=== PATIENT | male | born 1955 | race Caucasian/White ===

== ENCOUNTER 2016-05-02 23:12 | Emergency (ER) | payer OTHER ==
[2016-05-03 00:19] VITALS: TEMP 98
--- NOTE | 2016-05-03 00:55 | ED.PDOC ---
History of Present Illness - General Chief Complaint: GI Problem Stated Complaint: constipated and bugs all over Time Seen by Provider: 05/02/16 23:37 Source: patient, RN notes reviewed, Vital Signs reviewed Exam Limitations: no limitations - History of Present Illness Initial Comments: Stated constipated for 5 days and bugs all over me tonight Timing/Duration: 24 hours Severity: moderate Improving Factors: nothing Worsening Factors: nothing Associated Symptoms: denies symptoms Allergies/Adverse Reactions: Allergies NO KNOWN ALLERGY Allergy (Verified 10/05/15 19:40) Home Medications: Ambulatory Orders Insulin Aspart [Novolog] 10 unit SC TID 01/20/16 Insulin Glargine [Lantus Solostar] 25 unit SC BEDTIME 01/20/16 Docusate Sodium 100 mg PO BID 01/31/16 Hydrocodone-Acetaminophen [Lorcet Plus 7.5-325 mg] 1 each PO Q6HR PRN 01/31/16 Nystatin (Topical) [Nyamyc] 1 a TOP DAILY 01/31/16 Sulfamethoxazole-Trimethoprim [Bactrim Ds 800-160 mg] 1 tab PO BID 01/31/16 Magnesium Hydroxide [Milk of Magnesia] 30 ml PO BEDTIME PRN #30 oil 02/01/16 Polyethylene Glycol 3350 [Miralax] 17 gm PO QD #30 pckt 02/01/16 Sodium Phos/Biphos Enema Adult [Fleet Enema (Adult)] 1 ea GA DAILY PRN #7 bttl 02/01/16 Bisacodyl [Dulcolax Tab] 10 mg PO QPM PRN #30 tab 05/03/16 Insulin Aspart [Novolog] 10 unit SC TID #1 inj 05/03/16 Insulin Glargine [Lantus Solostar] 25 unit SC PCHS #1 bottle 05/03/16 Polyethylene Glycol 3350 [Miralax] 17 gm PO QDAC #30 pckt 05/03/16 Review of Systems - Review of Systems Constitutional: States: no symptoms reported EENTM: States: no symptoms reported Respiratory: States: no symptoms reported Cardiology: States: no symptoms reported Gastrointestinal/Abdominal: States: constipation Genitourinary: States: no symptoms reported Musculoskeletal: States: no symptoms reported Skin: States: dryness Endocrine: States: other - non compliance with diabetic medications Past Medical History (General) - Patient Medical History Hx Seizures: No Hx Stroke: No Hx Asthma: No Hx of COPD: No Hx Cardiac Disorders: No Hx Congestive Heart Failure: No Hx Pacemaker: No Hx Hypertension: No Hx Diabetes: Yes Hx Gastroesophageal Reflux: No Hx Renal Disease: No Hx Cancer: No Surgical History: appendectomy - Vaccination History Hx Tetanus, Diphtheria Vaccination: Yes Hx Influenza Vaccination: Yes Hx Pneumococcal Vaccination: Yes - Social History Hx Tobacco Use: Yes Hx Chewing Tobacco Use: No Hx Alcohol Use: No Hx Substance Use: No Hx Substance Use Treatment: No Hx Depression: No Hx Physical Abuse: No Hx Emotional Abuse: No Hx Suspected Abuse: No Family Medical History - Family History Mother Family History: Unknown Hx Family Diabetes: Yes - mother Hx Family;Other: patient uncoperative Physical Exam - Physical Exam General Appearance: Anxious, No apparent distress Ears, Nose, Throat: hearing grossly normal, normal ENT inspection, normal pharynx Neck: non-tender, full range of motion, normal inspection Respiratory: lungs clear, no respiratory distress Cardiovascular/Chest: normal peripheral pulses, regular rate, rhythm, no gallop , no murmur Peripheral Pulses: radial,right: 2+, radial,left: 2+ Gastrointestinal/Abdominal: normal bowel sounds, non tender, soft, no organomegaly, no pulsatile mass Rectal Exam: normal rectal tone, other - empty rectal vault no stool Back Exam: normal inspection, no CVA tenderness Extremity: non-tender, normal inspection, no pedal edema Progress - Progress Progress: 05/03/16 01:57 corrected sodium-138 mg/dl - Results/Orders Results/Orders: 05/03/16 01:05 COMPLETE METABOLIC PROFILE Stat THYROID STIMULATING HORMONE Stat 05/03/16 01:18 URINALYSIS Stat 05/03/16 01:35 Sodium Chloride 0.9% 1000ML [Ns 1000 ml] 1,000 ml IVS ONCE Laboratory Results WBC 7.4 K/mm3 (4.8-10.8) 05/03/16 01:05 RBC 4.92 M/mm3 (4.70-6.10) 05/03/16 01:05 Hgb 13.5 gm/dL (14.0-18.0) L 05/03/16 01:05 Hct 41.7 % (42.0-52.0) L 05/03/16 01:05 MCV 84.8 fl (80.0-94.0) 05/03/16 01:05 MCH 27.4 pg (27.0-31.0) 05/03/16 01:05 MCHC 32.3 g/dL (33.0-37.0) L 05/03/16 01:05 RDW 13.5 % (11.5-14.5) 05/03/16 01:05 Plt Count 352 K/mm3 (130-400) 05/03/16 01:05 MPV 8.2 fl (7.40-10.4) 05/03/16 01:05 Absolute Neuts (auto) 5.70 K/uL (1.8-6.8) 05/03/16 01:05 Absolute Lymphs (auto) 1.20 K/uL (1.0-3.4) 05/03/16 01:05 Absolute Monos (auto) 0.40 K/uL (0.2-0.8) 05/03/16 01:05 Absolute Eos (auto) 0.00 K/uL (0.0-0.4) 05/03/16 01:05 Absolute Basos (auto) 0.00 K/uL (0.0-0.1) 05/03/16 01:05 Neutrophils % 77.6 % (42.0-78.0) 05/03/16 01:05 Lymphocytes % 16.0 % (20.0-50.0) L 05/03/16 01:05 Monocytes % 5.3 % (2.0-9.0) 05/03/16 01:05 Eosinophils % 0.5 % (1.0-5.0) L 05/03/16 01:05 Basophils % 0.6 % (0.0-2.0) 05/03/16 01:05 Sodium 128 mmol/L (135-145) L 05/03/16 01:05 Potassium 4.5 mmol/L (3.6-5.0) 05/03/16 01:05 Chloride 97 mmol/L (101-111) L 05/03/16 01:05 Carbon Dioxide 27 mmol/L (21-31) 05/03/16 01:05 Anion Gap 8.5 (12-18) L 05/03/16 01:05 BUN 36 mg/dL (7-18) H 05/03/16 01:05 Creatinine 1.21 mg/dL (0.6-1.3) 05/03/16 01:05 BUN/Creatinine Ratio 29.8 (10-20) H 05/03/16 01:05 Random Glucose 702 mg/dL (70-105) H* 05/03/16 01:05 Serum Osmolality 298.9 mOsm/L (275-295) H 05/03/16 01:05 Calcium 8.9 mg/dL (8.4-10.2) 05/03/16 01:05 Total Bilirubin 0.6 mg/dL (0.2-1.0) 05/03/16 01:05 AST 14 IU/L (10-42) 05/03/16 01:05 ALT 14 IU/L (10-60) 05/03/16 01:05 Alkaline Phosphatase 67 IU/L (42-121) 05/03/16 01:05 Serum Total Protein 6.4 gm/dL (6.4-8.2) 05/03/16 01:05 Albumin 3.6 g/dl (3.2-5.5) 05/03/16 01:05 Globulin 2.8 gm/dL (2.3-3.5) 05/03/16 01:05 Albumin/Globulin Ratio 1.3 (1.1-1.9) 05/03/16 01:05 Urine Opiates Screen Negative ng/mL (2000) 05/03/16 01:40 Urine Barbiturates Negative ng/mL (200) 05/03/16 01:40 Ur Phencyclidine Scrn Negative ng/mL (25) 05/03/16 01:40 U Amphetamin/Meth Scrn Negative ng/mL (1000) 05/03/16 01:40 U Benzodiazepines Scrn Negative ng/mL (200) 05/03/16 01:40 U Cocaine Metab Screen Negative ng/mL (300) 05/03/16 01:40 U Cannabinoids Screen Negative ng/mL (50) 05/03/16 01:40 FSBS-372 mg/dl - EKG/XRAY/CT XRAY: abdomen - moderate amount of stool colon Departure - Departure Clinical Impression: Diabetes mellitus type 2, uncontrolled, without complications, Non compliance w medication regimen Constipation Qualifiers: Constipation type: unspecified constipation type Qualifier Code: (K59.00) Constipation, unspecified Time of Disposition: 05:55 Disposition: Discharge to Home or Self Care Condition: Good Departure Forms: ED Discharge - Pt. Copy, Patient Portal Self Enrollment Instructions: DI for Constipation Referrals: Eloise Durand NP [Primary Care Provider] - 1-2 Weeks Prescriptions: Bisacodyl [Dulcolax Tab] 10 mg PO QPM PRN #30 tab PRN Reason: Constipation Insulin Glargine [Lantus Solostar] 25 unit SC PCHS #1 bottle Polyethylene Glycol 3350 [Miralax] 17 gm PO QDAC #30 pckt Insulin Aspart [Novolog] 10 unit SC TID #1 inj Home Medications: Ambulatory Orders Insulin Aspart [Novolog] 10 unit SC TID 01/20/16 Insulin Glargine [Lantus Solostar] 25 unit SC BEDTIME 01/20/16 Docusate Sodium 100 mg PO BID 01/31/16 Hydrocodone-Acetaminophen [Lorcet Plus 7.5-325 mg] 1 each PO Q6HR PRN 01/31/16 Nystatin (Topical) [Nyamyc] 1 a TOP DAILY 01/31/16 Sulfamethoxazole-Trimethoprim [Bactrim Ds 800-160 mg] 1 tab PO BID 01/31/16 Magnesium Hydroxide [Milk of Magnesia] 30 ml PO BEDTIME PRN #30 oil 02/01/16 Polyethylene Glycol 3350 [Miralax] 17 gm PO QD #30 pckt 02/01/16 Sodium Phos/Biphos Enema Adult [Fleet Enema (Adult)] 1 ea GA DAILY PRN #7 bttl 02/01/16 Bisacodyl [Dulcolax Tab] 10 mg PO QPM PRN #30 tab 05/03/16 Insulin Aspart [Novolog] 10 unit SC TID #1 inj 05/03/16 Insulin Glargine [Lantus Solostar] 25 unit SC PCHS #1 bottle 05/03/16 Polyethylene Glycol 3350 [Miralax] 17 gm PO QDAC #30 pckt 05/03/16
[2016-05-03] MEDS ORDERED: SODIUM CHLORIDE 0.9% 1000ML 1,000 ML IVS ONE (01:35)
--- NOTE | 2016-05-03 01:37 | RAD ---
EXAM DESCRIPTION: XR ABDOMEN 2 VIEWS SUPINE ERECT CLINICAL HISTORY: 60 y/o , M, constipation COMPARISON: Acute abdominal series January 31, 2016 TECHNIQUE: Acute abdominal series FINDINGS: The lungs are clear without focal consolidation or pleural effusion. The heart is normal in size. The mediastinal contours are normal. The bowel gas pattern is normal. There is a moderate amount of formed stool diffusely throughout the colon. There is no evidence of free air. There are no abnormal masses or calcifications. Limited evaluation of the liver, spleen, and kidneys demonstrate no gross abnormalities. The osseous structures are age appropriate. IMPRESSION: 1. No acute cardiopulmonary disease. 2. No acute intraabdominal process. 3. Moderate formed colonic stool. Electronically signed by: Genet Castro MD 05/03/2016 01:36
[2016-05-03] MEDS ORDERED: INSULIN, REG.(HUMAN) 100 U/ML VIAL IV ONE (01:48)
[2016-05-03] MEDS ORDERED: INSULIN DETEMIR 100 UNITS/ML PEN SUBCU ONE (04:00)
[2016-05-03 06:48] VITALS: BP 128/80; O2SAT 96
== END 2016-05-03 07:21 | disposition home or self-care (01) ==
LOC: ER 23:12
DX: K59.00 Constipation, unspecified (principal); E11.65 Type 2 diabetes mellitus with hyperglycemia; Z91.14 Patient's other noncompliance with medication regimen; Z79.4 Long term (current) use of insulin; Z79.899 Other long term (current) drug therapy
CPT/HCPCS: 36415; 74020; 80048; 80053; 81001; 82948; 84443; 85025; G0479; J1815; J7030

== ENCOUNTER 2016-05-17 15:30 | Observation (INO) | payer OTHER ==
[2016-05-17] MEDS ORDERED: SODIUM CHLORIDE 0.9% 1000ML 1,000 ML IVS ONE ×2 (16:11→18:24)
[2016-05-17] MEDS ORDERED: hydrOXYzine PAMOATE 25 MG CAP PO ONE ×3 (16:45→19:04)
--- NOTE | 2016-05-17 17:45 | ED.PDOC ---
History of Present Illness - General Chief Complaint: Bite: Animal/Insect/Human Stated Complaint: BUGS ALL OVER BODY Time Seen by Provider: 05/17/16 16:00 Source: patient Exam Limitations: no limitations Additional Information: C/O SENSATION OF BUG BITES ON HIS FACE AND BOTTOMS OF FEET. PRESENT FOR [address] NOT SEEN [address] ABOUT IT YET. HAS IDDM. DOES NOT HAVE A DR. I ASKED WHERE HE GOT HIS INSULIN AND HE SAID AT THE HOSPITAL. HE RAN OUT AND HAS NOT TAKEN FOR A LONG TIME. - History of Present Illness Severity: moderate Improving Factors: nothing Worsening Factors: nothing Allergies/Adverse Reactions: Allergies NO KNOWN ALLERGY Allergy (Verified 10/05/15 19:40) Home Medications: Ambulatory Orders Insulin Aspart [Novolog] 10 unit SC TID 01/20/16 Insulin Glargine [Lantus Solostar] 25 unit SC BEDTIME 01/20/16 Docusate Sodium 100 mg PO BID 01/31/16 Hydrocodone-Acetaminophen [Lorcet Plus 7.5-325 mg] 1 each PO Q6HR PRN 01/31/16 Nystatin (Topical) [Nyamyc] 1 a TOP DAILY 01/31/16 Sulfamethoxazole-Trimethoprim [Bactrim Ds 800-160 mg] 1 tab PO BID 01/31/16 Magnesium Hydroxide [Milk of Magnesia] 30 ml PO BEDTIME PRN #30 oil 02/01/16 Polyethylene Glycol 3350 [Miralax] 17 gm PO QD #30 pckt 02/01/16 Sodium Phos/Biphos Enema Adult [Fleet Enema (Adult)] 1 ea CO DAILY PRN #7 bttl 02/01/16 Bisacodyl [Dulcolax Tab] 10 mg PO QPM PRN #30 tab 05/03/16 Insulin Aspart [Novolog] 10 unit SC TID #1 inj 05/03/16 Insulin Glargine [Lantus Solostar] 25 unit SC PCHS #1 bottle 05/03/16 Polyethylene Glycol 3350 [Miralax] 17 gm PO QDAC #30 pckt 05/03/16 Review of Systems - Review of Systems Constitutional: Denies: chills, fever, malaise, weakness EENTM: States: no symptoms reported. Denies: eye pain Respiratory: States: no symptoms reported Cardiology: States: no symptoms reported Gastrointestinal/Abdominal: States: no symptoms reported Genitourinary: States: no symptoms reported Musculoskeletal: States: no symptoms reported Skin: States: other - PRURITIS. Neurological: States: no symptoms reported Endocrine: States: no symptoms reported Hematologic/Lymphatic: States: no symptoms reported All other Systems: Reviewed and Negative Past Medical History (General) - Patient Medical History Hx Seizures: No Hx Stroke: No Hx Asthma: No Hx of COPD: No Hx Cardiac Disorders: No Hx Congestive Heart Failure: No Hx Pacemaker: No Hx Hypertension: No Hx Diabetes: Yes Hx Gastroesophageal Reflux: No Hx Renal Disease: No Hx Cancer: No Surgical History: appendectomy - Vaccination History Hx Tetanus, Diphtheria Vaccination: Yes Hx Influenza Vaccination: Yes Hx Pneumococcal Vaccination: Yes - Social History Hx Tobacco Use: Yes Hx Chewing Tobacco Use: No Hx Alcohol Use: No Hx Substance Use: No Hx Substance Use Treatment: No Hx Depression: No Hx Physical Abuse: No Hx Emotional Abuse: No Hx Suspected Abuse: No Family Medical History - Family History Mother Family History: Unknown Hx Family Diabetes: Yes - mother Hx Family;Other: patient uncoperative Physical Exam - Physical Exam General Appearance: Anxious, Other - UNCOMFORTABLE Eye Exam: bilateral normal Ears, Nose, Throat: hearing grossly normal, normal ENT inspection, normal pharynx Neck: non-tender, full range of motion, supple Respiratory: chest non-tender, lungs clear, normal breath sounds Cardiovascular/Chest: normal peripheral pulses, regular rate, rhythm Peripheral Pulses: radial,right: 2+ Gastrointestinal/Abdominal: normal bowel sounds, non tender Back Exam: normal inspection, no CVA tenderness Extremity: normal range of motion, non-tender Neurologic: crystal lapper II-XII nml as tested, alert, oriented x 3 Skin Exam: warm/dry, other - EXCORIATIONS BUE AND NECK. NO BURROWS, BUG BITE TRACTS, OR RASH. Lymphatic: no adenopathy Progress - Results/Orders Results/Orders: DKA - GLUCOSE 765. URINE TRACE KETONES. ANION GAP NL AT 9. GAVE 1L NS BOLUS. REPEAT GLUCOSE 611. GAVE 10 UNITS INSULIN AND 2ND LITER IVF. POTASSIUM WAS 4.7. REPEAT BMP PENDING. ABG - ATTEMPTED BUT THEN PT REFUSED THUS NOT OBTAINED. NA 128, CORRECTED SODIUM 139. FOR URTICARIA, GAVE VISTARIL WHICH HELPED. 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 Departure - Departure Clinical Impression: Diabetic ketoacidosis Disposition: Admit Patient Departure Forms: ED Discharge - Pt. Copy, Patient Portal Self Enrollment Home Medications: Ambulatory Orders Insulin Aspart [Novolog] 10 unit SC TID 01/20/16 Insulin Glargine [Lantus Solostar] 25 unit SC BEDTIME 01/20/16 Docusate Sodium 100 mg PO BID 01/31/16 Hydrocodone-Acetaminophen [Lorcet Plus 7.5-325 mg] 1 each PO Q6HR PRN 01/31/16 Nystatin (Topical) [Nyamyc] 1 a TOP DAILY 01/31/16 Sulfamethoxazole-Trimethoprim [Bactrim Ds 800-160 mg] 1 tab PO BID 01/31/16 Magnesium Hydroxide [Milk of Magnesia] 30 ml PO BEDTIME PRN #30 oil 02/01/16 Polyethylene Glycol 3350 [Miralax] 17 gm PO QD #30 pckt 02/01/16 Sodium Phos/Biphos Enema Adult [Fleet Enema (Adult)] 1 ea CO DAILY PRN #7 bttl 02/01/16 Bisacodyl [Dulcolax Tab] 10 mg PO QPM PRN #30 tab 05/03/16 Insulin Aspart [Novolog] 10 unit SC TID #1 inj 05/03/16 Insulin Glargine [Lantus Solostar] 25 unit SC PCHS #1 bottle 05/03/16 Polyethylene Glycol 3350 [Miralax] 17 gm PO QDAC #30 pckt 05/03/16 Decision To Admit - Decistion To Admit Decision to Admit Reason: Admit from ER Decision to Admit Date: 05/17/16 Decision to Admit Time: 19:09
[2016-05-17] MEDS ORDERED: INSULIN, REG.(HUMAN) 100 U/ML VIAL IV ONE (18:21)
[2016-05-17] MEDS ORDERED: HYDROmorphone HCL INJ 2 MG/ML VIAL IV ONE (19:19)
--- NOTE | 2016-05-17 20:23 | HP ---
SUPERVISING PHYSICIAN: Isa Arriaza MD CHIEF COMPLAINT: Bugs all over body. HISTORY OF PRESENT ILLNESS: Mr. Marroquin is a 61-year-old, male patient who presented to the Emergency Department complaining of sensation of having bug bites on his face and his legs. He does admit to using methamphetamines on a daily basis and notes he has been feeling bugs on his skin now for 7 months. He also has a history of type 2 diabetes mellitus previously requiring insulin, however, he has failed to follow the medication regimen and has run out of insulin many months previous to this admission. Laboratory studies today showed glucose 765 on admission with a corrected sodium of 139 with potassium 4.7, serum osmolality greater than 300, serum ketones negative. ABG was attempted, however, the patient refused after several attempts. Anion gap was 13 initially. He was given 2 liters of normal saline and 10 units of regular insulin IV in the Emergency Department. Blood sugar corrected to 383 by the time he was requested to be admitted to the Medical/Surgical Floor. Given the patient's significant hyperglycemia/hyperosmolar state with the absence of ketones, the patient is going to be admitted for continuation of treatment and further evaluation. He was admitted in stable condition. PAST MEDICAL HISTORY: 1. Type 2 diabetes mellitus, previously requiring insulin with the patient being noncompliant with medication regimen. 2. Psoriasis. PAST SURGICAL HISTORY: 1. Appendectomy. 2. Left knee surgery. 3. Hernia repair. PREVIOUS MEDICATIONS: 1. NovoLog 10 units subcutaneously 3 times a day. 2. Lantus 25 units with at bedtime. ALLERGIES: NO KNOWN DRUG ALLERGIES. FAMILY HISTORY: Unremarkable. SOCIAL HISTORY: The patient is disabled. He lives in [place]. He previously lived at [facility], but currently lives with a girlfriend. He denies any alcohol usage, but does note that he smokes methamphetamine on a daily basis with the last being 2 days previous to this admission. He does not smoke tobacco, but he does use smokeless tobacco. REVIEW OF SYSTEMS: CONSTITUTIONAL: Denies any fevers, chills, or unintentional weight loss or weight gain. HEENT: Denies sinus symptoms, nasal drainage, sore throat, or ear pain. CARDIOVASCULAR: Denies chest pain, tachycardia. or palpitations. RESPIRATORY: Denies cough, wheezing, or well-mobilized. GASTROINTESTINAL: He has chronic constipation with the last bowel movement 2 weeks previous, but denies nausea or vomiting. GENITOURINARY: Denies dysuria, increased frequency or other urinary symptoms. INTEGUMENTARY: He notes that he has bugs crawling on him, mainly on his face, legs and arms. He denies any rashes. NEUROLOGIC: Denies, headaches, dizziness, or seizures. PSYCHIATRIC: Tactile hallucinations secondary to amphetamine abuse. Denies any suicidal or homicidal ideations. Thought process is adequate. Affect is hyperactive, but not agitated. PHYSICAL EXAMINATION: VITAL SIGNS: Temperature 97.3. Pulse 79. Blood pressure 137/85. Respirations 16. O2 saturation 97% on room air. Admission weight 60.4 kg, which is down from his previous admission in January 2016. At that time, it was 62.1 kg. GENERAL: The patient is very unkept, disheveled. He appears somewhat anxious, but no distress and is alert and oriented. The patient is very thin in stature. HEENT: Tympanic membranes occluded bilaterally by cerumen. Oropharynx is pink. Mucous membranes are dry. Lips are cracked. There are no oral lesions noted. NECK: No jugular venous distention noted. CHEST: Lungs clear to auscultation bilaterally without any rhonchi, wheezes, or rales. CARDIOVASCULAR: Regular rate and rhythm without any appreciable murmurs, gallops, or rubs. ABDOMEN: Soft, nontender. Positive bowel sounds. EXTREMITIES: There is no cyanosis, clubbing or edema. All extremities are notably thin, but he has no weakness and moves all extremities ad romero. NEUROLOGIC: The patient is alert and oriented times three. Cranial nerves II- XII are grossly intact. Facial features are symmetrical. Extraocular movements are within normal limits. There is no nystagmus. Pupils are equal and reactive to light. There are no motor or sensory deficits noted. PSYCHIATRIC: He denies any suicidal or homicidal ideations. He notes he has sensation of bugs crawling on him and actually points bugs out where they are at , but on inspected, there is nothing to be seen. INTEGUMENT: He has multiple scabs to the lower extremities, a few on the upper extremities. Skin is dry, unkept, but no signs of parasitic infestation on examination. He does have a stage 1 to 2 decubitus approximately 2 cm in diameter on the left buttock. LABORATORY: Initial white count 11.0 on admission. Hemoglobin 12.6, hematocrit 39.6, platelet count 292,000, differential showing left shift. Chemistries showed sodium 128, but corrected for glucose of 765 to 139. Potassium 4.7 initially with carbon dioxide 24, anion gap 13, BUN 23, creatinine 1.13, serum osmolality greater than 300. Liver functions were all within normal limits. After 2 liters of IV fluids prior to admission to the Medical/Surgical Floor and 10 units of IV regular insulin, glucose had decreased to 383, serum osmolality 285, BUN 23, creatinine 0.94, with sodium corrected 137. Urine dipstick showed 500 glucose with trace blood, trace ketones, negative nitrites, negative leukocyte esterase. Microscopic was within normal limits. Urine drug screen showed positive for methamphetamines, negative for all other substances tested. Serum ketones were negative. Alcohol level was not completed prior to admission to the Medical/Surgical Floor. Hemoglobin A1c 15.4, TSH pending. RADIOLOGY: Chest x-ray pending. EKG shows a normal sinus rhythm without any ST elevation of T-wave depression. ASSESSMENT: 1. Hyperosmolar/hyperglycemic state with negative ketones in patient with type 2 diabetes and poor compliance with medical treatment with normal anion gap and normal serum CO2. 2. 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 3. Severe malnutrition secondary to amphetamine abuse and poorly controlled diabetes. 4. Type 2 diabetes mellitus with poor medical compliance, previously requiring insulin. 5. History of psoriasis. 6. Nicotine addiction with smokeless tobacco. 7. Moderate dehydration secondary to #1. 8. Chronic constipation exacerbated by methamphetamine abuse and dehydration without any noted abdominal pain or nausea or vomiting. 9. Hypertension, poorly controlled. 10. Stage 2 decubitus ulcer to the coccyx area. PLAN: The patient will be placed in observation to better stabilize his blood sugars and assist with establishing a medication regimen. Social Service will be requested as apparently the patient is homeless and has been living a girlfriend who is currently in [facility]. We will continue with IV fluids tonight to include half normal saline with 20 potassium run at 250 in addition to a multivitamin infusion with 100 of thiamine run at 125 per hour. He will be given folic acid and started on metformin and lisinopril. Given his tactile hallucinations and inability to find any significant parasitic infestation, but given that he is essentially homeless and living in poor living conditions, we will provide him with shower and Permethrin treatment to be applied after showering to be washed off after 8 to 10 hours. In addition to the Permethrin, we will also utilize lice killing shampoo. He will be started on an 1800 calorie diet and insulin sliding scale. He will be started on DVT prophylaxis as per protocol. We will await chest x-ray in the morning and repeat laboratory studies to include CBC and BMP and await TSH levels. I will give him some Ativan tonight as he is slightly anxious, but pleasant at the time of admission and also hopefully assist with decreasing some of his tactile hallucinations. Treatment of the decubitus ulcer on the coccyx will be started per protocol. I will give him some Milk of Magnesia and Dulcolax tonight to assist with relieving his constipation. We will check his blood sugars q.1h. until 1 o'clock as his last blood sugar was less than 300. He is started on a diet. We will start him on continuous sliding and metformin and treat accordingly. We will anticipate length of stay to be 1 to 2 days, possibly longer depending on the patient's clinical progression. The patient will certainly need Social Service resources to assist in placement in a safe environment, either back to detention care facility or other means of assistance. He will need to reestablish with a medical provide preferably at this point [facility] to assist in management of his blood sugars. He will need counseling eventually to assist with amphetamine abuse, which can be provided in the outpatient setting once medically stable. Until discharge, we will continue to monitor the patient closely and treat appropriately. #[id number] [facility]
[2016-05-17] MEDS ORDERED: DEXTROSE 50% 25 GM/50 ML SYG IV PRN (20:36)
[2016-05-17] MEDS ORDERED: GLUCAGON INJ 1 MG VIAL SUBCU PRN (20:36)
[2016-05-17] MEDS ORDERED: ACETAMINOPHEN 325 MG TAB PO PRN (20:36)
[2016-05-17] MEDS ORDERED: SODIUM CHLORIDE 0.9% (FLUSH) 10 ML SYG IV SCH (21:00)
[2016-05-17] MEDS ORDERED: IV SET AND CAP CHANGE INJ INJ SCH (21:00)
[2016-05-17] MEDS: INSULIN LISPRO 100 UNITS/ML PEN SUBCU SCH (21:15)
[2016-05-17] MEDS ORDERED: KCL 20MEQ/0.45% NS 1,000 ML IVS PRN (22:33)
[2016-05-17] MEDS ORDERED: MAGNESIUM HYDROXIDE 30 ML UD PO ONE (22:34)
[2016-05-17] MEDS ORDERED: PERMETHRIN 5% 60 GM TUBE TOP ONE (22:36)
[2016-05-17] MEDS ORDERED: MULTIPLE VITAMIN INJ 10 ML, THIAMINE HCL INJ 100 MG in SODIUM CHLORIDE 0.9% 1000ML 1,00... IV SCH (23:00)
[2016-05-17] MEDS ORDERED: SODIUM CHLORIDE 0.9% 1000ML 1,000 ML ONE (23:01)
[2016-05-17] MEDS ORDERED: THIAMINE HCL INJ 100 MG/ML VIAL ONE (23:01)
[2016-05-17] MEDS ORDERED: MULTIPLE VITAMIN 10 ML VIAL ONE (23:02)
[2016-05-17] MEDS ORDERED: SODIUM CHLORIDE 0.9% 10 ML VIAL ONE (23:02)
[2016-05-17] MEDS ORDERED: PYRETHRINS-PIPERONYL BUTOXIDE 1 APPLIC BTTL TOP ONE (23:16)
[2016-05-17] MEDS ORDERED: metFORMIN HCL 500 MG TAB ONE (23:18)
[2016-05-17] MEDS: SODIUM CHLORIDE 0.9% (FLUSH) 10 ML SYG IV PRN (23:25)
[2016-05-17] MEDS ORDERED: DOCUSATE SODIUM 100 MG CAP PO ONE (23:26)
[2016-05-17] MEDS ORDERED: LISINOPRIL 10 MG TAB PO SCH (23:26)
[2016-05-17] MEDS: metFORMIN HCL 500 MG TAB PO SCH (23:34)
[2016-05-18] MEDS: SODIUM CHLORIDE 0.9% (FLUSH) 10 ML SYG IV PRN (00:52)
[2016-05-18] MEDS ORDERED: SODIUM CHLORIDE 0.9% 10 ML VIAL IV PRN (06:56)
[2016-05-18] MEDS ORDERED: FOLIC ACID 1 MG TAB ONE (07:10)
[2016-05-18] MEDS: INSULIN LISPRO 100 UNITS/ML PEN SUBCU SCH ×3 (07:25→16:57)
[2016-05-18] MEDS: metFORMIN HCL 500 MG TAB PO SCH ×2 (07:26→17:10)
[2016-05-18] MEDS ORDERED: FOLIC ACID 1 MG TAB PO SCH (09:00)
[2016-05-18] MEDS ORDERED: SODIUM CHLORIDE 0.9% 1000ML 1,000 ML ONE (09:45)
[2016-05-18] MEDS ORDERED: THIAMINE HCL INJ 100 MG/ML VIAL ONE (09:46)
--- NOTE | 2016-05-18 09:46 | RAD ---
EXAM DESCRIPTION: XR CHEST 2 VIEWS CLINICAL HISTORY: cough COMPARISON: 05 October 2015 TECHNIQUE: PA/lateral FINDINGS: There is no cardiac or pulmonary abnormality. The lungs are clear. There is no effusion. IMPRESSION: 1. Normal two-view chest Electronically signed by: Joel Almeida MD 05/18/2016 09:45
[2016-05-18] MEDS ORDERED: MULTIPLE VITAMIN 10 ML VIAL ONE (09:47)
[2016-05-18] MEDS ORDERED: INSULIN DETEMIR 100 UNITS/ML PEN SUBCU SCH (10:00)
[2016-05-18] MEDS ORDERED: MULTIPLE VITAMIN INJ 10 ML, THIAMINE HCL INJ 100 MG in SODIUM CHLORIDE 0.9% 1000ML 1,00... IV SCH (10:00)
[2016-05-18 13:19] VITALS: O2SAT 96
[2016-05-18 17:22] VITALS: BP 118/72; TEMP 98.4
[2016-05-18] MEDS ORDERED: LISINOPRIL 10 MG TAB PO SCH (22:54)
[2016-05-18] MEDS ORDERED: DOCUSATE SODIUM 100 MG CAP PO ONE (22:58)
[2016-05-18] MEDS ORDERED: metFORMIN HCL 500 MG TAB PO SCH (23:06)
--- NOTE | 2016-05-19 08:34 | DS ---
SUPERVISING PHYSICIAN: Isa Arriaza MD DISCHARGE DIAGNOSIS: 1. Hyperosmolar/hyperglycemic state with negative ketones in patient with type 2 diabetes and poor compliance with medical treatment with normal anion gap and normal serum CO2 on admission, showing stabilization of blood sugars with sliding and long acting insulin including Levemir. 2. 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 3. Severe malnutrition secondary to amphetamine abuse and poorly controlled diabetes. 4. Type 2 diabetes mellitus with poor medical compliance, previously requiring insulin. 5. History of psoriasis. 6. Nicotine addiction with smokeless tobacco. 7. Moderate dehydration secondary to #1, improved after IV fluids. 8. Chronic constipation exacerbated by methamphetamine abuse and dehydration without any noted abdominal pain or nausea or vomiting on admission. 9. Hypertension, poorly controlled. 10. Stage 2 decubitus ulcer to the coccyx area. HISTORY OF PRESENT ILLNESS: Mr. Marroquin is a 61-year-old, male patient who presented to the Emergency Department complaining of sensation of having bug bites on his face and his legs. He does admit to using methamphetamines on a daily basis and notes he has been feeling bugs on his skin now for 7 months. He also has a history of type 2 diabetes mellitus previously requiring insulin, however, he has failed to follow the medication regimen and has run out of insulin many months previous to this admission and refuses to follow care plan that includes insulins and diet. Laboratory studies on admission showed glucose 765 in the Emergency Room initially with a corrected sodium of 139 with potassium 4.7, serum osmolality greater than 300, serum ketones negative. ABG was attempted in the Emergency Room, however, the patient refused after several attempts. Anion gap was 13 initially. He was given 2 liters of normal saline and 10 units of regular insulin IV in the Emergency Department. Prior to admission to the Medical/Surgical Floor, his blood sugar corrected to 383 and his anion gap had decreased. The patient was admitted with significant hyperglycemic/hyperosmolar state with the absence of ketones for continuation of treatment and further evaluation and stabilization. He was admitted in stable condition. LABORATORY: Initial white count 11.0 on admission. At time of discharge it was 7.8. Hemoglobin and hematocrit were stable at 12.2 and 36.7 at discharge. Differential was normal. Platelet count within normal limits at 289. Chemistries initially on admission showed 128, but corrected for glucose of 765 to 139. Potassium 4.7, BUN 23, creatinine 1.13. Liver functions within normal limits. Osmolality greater than 300. After given 10 units of insulin IV and saline infusions, the patient's blood sugar did decrease to 611 initially and at time of discharge from the Emergency Room and admission to the Medical/ Surgical Floor was 383. Sodium was corrected to 135, potassium 3.7, BUN 23, creatinine 0.94, calcium 8.2. After continuation of IV fluids and sliding scale and Levemir, the patient's blood sugars stabilized and at time of discharge was down to 106. Electrolytes were within normal limits, potassium 4.1, BUN 138, serum osmolality still continued to be elevated, but was down to 293. TSH was normal at 0.74. Urinalysis showed only 500 glucose, trace intact blood on dipstick. Microscopic was all within normal limits. Toxicology screen showed urine drug screen positive for methamphetamines and negative for all other substances tested. Serum ketones negative on admission. MICROBIOLOGY: No specimens submitted for review. RADIOLOGY: Single chest x-ray on admission to the Medical/Surgical Floor and per radiology interpretation on two view chest, there was no reported cardiopulmonary abnormalities. Lungs were clear, no effusions. HOSPITAL COURSE: Mr. Marroquin was admitted as noted in history of present illness for a hyperglycemic/hyperosmolar state, but was not found to be an acidotic or ketotic state. He was stabilized in the Emergency Department prior to admission to the Floor. On the Medical/Surgical Floor, it was found that he was homeless and he was very disheveled. Therefore, he was provided a shower and actually treated for possible scabies although there was no evidence of scabies. He was given Permethrin 5% as well as an anti-lice shampoo. He was started on multivitamin infusion with thiamine 100 mg which he received 2 liters completion prior to discharge. He was taking adequate p.o. diet without any complication. He was given some Ativan on admission secondary to his hyperexcitability and continued reporting of hallucinations. The Ativan did result in a decrease in his activity. He rested through the night and woke the next morning reporting he was no longer feeling as if he had bugs crawling on him and he was much more relaxed. He remained hemodynamically stable with blood pressure on discharge of 118/72, respirations 16, saturation 96% on room air, heart rate 80. He remained afebrile with T-max 98.4. He was felt to be clinically stable and improved well enough to be discharged. PLAN: The patient was discharged home after extensive education regarding diabetic management. He was instructed that he needed close clinical followup with [facility] this coming week to help management his diabetes including insulin. He was started on metformin prior to discharge at 500 mg twice daily as well as lisinopril 10 mg daily. He was started on Levemir long acting insulin and instructed to continue with medications as directed prior to admission except to stop the previous insulin regimen that he had reported. He was now to use Levemir twice daily at 15 units in the morning , 15 units at night. He was instructed and given a Glucometer to check blood sugars at least 3 times daily and at bedtime. He was again instructed to eat adequate food including snacks at night to prevent low blood sugars. He was educated on a diabetic diet and instructed that he should never skip meals. He was encouraged to continue with fluids to help with dehydration and further relief of constipation. He was encouraged to stop using methamphetamines as well as smokeless tobacco and to return to the hospital should he have no improvement or worsening of his condition. He was discharged with new prescriptions to include: 1. Metformin 500 mg twice daily, #60. 2. Insulin - Levemir pen 15 units subcutaneously twice daily, 1 pen, no refills. 3. Lisinopril 10 mg daily, #30. He was to return to medication regimen as prior to admission except for any insulins he had been prescribed or may have in his possession. His condition at time of discharge was good and stable. He was discharged to the care of a friend with Levemir pen provided as well as a Glucometer at time of discharge. #[id number] [facility]ITAL[facility]
== END 2016-05-18 18:35 | disposition home or self-care (01) ==
LOC: ER 15:30 → MS 20:22
PROVIDERS: ADMIT Nurse Practitioner Family; ATTEND Nurse Practitioner Family
DX: E11.00 Type 2 diabetes mellitus with hyperosmolarity without nonketotic hyperglycemic-hyperosmolar coma (NKHHC) (principal); E11.65 Type 2 diabetes mellitus with hyperglycemia; Z91.14 Patient's other noncompliance with medication regimen; F15.151 Other stimulant abuse with stimulant-induced psychotic disorder with hallucinations; E43 Unspecified severe protein-calorie malnutrition; L40.9 Psoriasis, unspecified; F17.220 Nicotine dependence, chewing tobacco, uncomplicated; E86.0 Dehydration; K59.09 Other constipation; I10 Essential (primary) hypertension; L89.152 Pressure ulcer of sacral region, stage 2; L50.9 Urticaria, unspecified; Z59.0 Homelessness; Z79.4 Long term (current) use of insulin; Z90.49 Acquired absence of other specified parts of digestive tract
CPT/HCPCS: 36415; 36416 ×5; 71020; 80048 ×2; 80053; 80307; 81001; 82009; 82947 ×2; 82948 ×8; 83036; 84443; 85025 ×2; 93005; 94760 ×2; 96361; 96372 ×2; 96374; 96375 ×2; 96376; 99284; G0378; J1170; J1815 ×2; J2060; J3411 ×2; J7030 ×4

== ENCOUNTER 2016-06-14 16:41 | Inpatient (IN) | payer OTHER ==
[~2016-06-14 16:41] MED LIST: MULTIPLE VITAMIN IVS ONE; SODIUM CHLORIDE IVS ONE
[2016-06-14] MEDS ORDERED: INSULIN, REG.(HUMAN) 100 U/ML VIAL IV ONE (17:24)
[2016-06-14] MEDS ORDERED: SODIUM CHLORIDE 0.9% 1000ML 1,000 ML IVS ONE ×2 (17:25→18:38)
--- NOTE | 2016-06-14 17:47 | RAD ---
EXAM: Abdomen Series CLINICAL INDICATION: 61-year-old male with abdominal pain. TECHNIQUE: Single view, PA chest was obtained. Two views of the abdomen were obtained in upright and supine positioning. COMPARISON: None. FINDINGS: Chest: Unremarkable cardiac and mediastinal silhouette. Heart size is normal. Lungs are clear without focal opacity, pneumothorax or pleural effusions. The visualized bones are within normal limits. The patient's glasses are identified overlying the chest. Abdomen: Gas is seen within normal caliber small and large bowel. Large volume of fecal material present throughout the large bowel and rectum raising the question of fecal stasis, constipation. No free air is identified. There are no abnormal calcifications. The osseous structures reveal degenerative change. The lung bases are clear. IMPRESSION: 1. No acute cardiopulmonary abnormalities. 2. Large volume of fecal material present throughout the large bowel and rectum raising the question of fecal stasis, constipation. Electronically signed by: Damaris Moraes MD 06/14/2016 5:46 PM ESTHETICIAN
[2016-06-14] MEDS ORDERED: HYDROmorphone HCL INJ 2 MG/ML VIAL IV SCH (18:00)
--- NOTE | 2016-06-14 18:01 | ED.PDOC ---
History of Present Illness - General Source: patient, RN notes reviewed Exam Limitations: no limitations - History of Present Illness Initial Comments: the patient is a 61-year-old male presenting to the emergency room secondary to the feeling of crawling all over his skin along with some abdominal pain and generalized muscle cramping. This patient is apparently well known to staff here as he has a long-standing history of uncontrolled diabetes and when that is at its worse she feels the bugs crawling on his skin along with the belly pain and body aches. he apparently last checked his blood sugar 3 days ago and it was higher than his register with Rakesh which is at least above 600. He is not taking any additional medications nor rechecked it. He does feel thirsty. He has been urinating more than normal. He has not passed out but has gotten dizzy a few times. No fevers. He has thrown up once. No diarrhea. No chest pain. No shortness of breath. He does feel weak in general however. <Jez Arriaza - Last Filed: 06/14/16 18:37> <Shannon Davila - Last Filed: 06/14/16 21:43> - General Chief Complaint: Abdominal Pain Time Seen by Provider: 06/14/16 17:23 - History of Present Illness Allergies/Adverse Reactions: Allergies NO KNOWN ALLERGY Allergy (Verified 10/05/15 19:40) Home Medications: Ambulatory Orders RX: Docusate Sodium 100 mg PO BID 01/31/16 RX: Polyethylene Glycol 3350 [Miralax] 17 gm PO QDAC #30 pckt 05/03/16 RX: Insulin Detemir [Levemir Pen] 15 units SUBCU BID #0 pen 05/18/16 RX: Lisinopril 10 mg PO DAILY #30 tab 05/18/16 RX: metFORMIN HCL [Glucophage] 500 mg PO BIDFD #60 tab 05/18/16 Review of Systems - Review of Systems Constitutional: States: malaise, weakness EENTM: States: blurred vision - mild Respiratory: States: no symptoms reported Cardiology: States: no symptoms reported Gastrointestinal/Abdominal: States: abdominal pain, nausea, vomiting Genitourinary: States: frequency Musculoskeletal: States: back pain, muscle pain, other - generalized myalgias Skin: States: other - feeling of bugs crawling on his skin Neurological: States: anxiety Endocrine: States: increased thirst, increased urine All other Systems: No Change from Baseline <Jez Arriaza - Last Filed: 06/14/16 18:37> Past Medical History (General) - Patient Medical History Hx Seizures: No Hx Stroke: No Hx Asthma: No Hx of COPD: No Hx Cardiac Disorders: No Hx Congestive Heart Failure: No Hx Pacemaker: No Hx Hypertension: No Hx Diabetes: Yes Hx Gastroesophageal Reflux: No Hx Renal Disease: No Hx Cancer: No Hx MRSA: No - Vaccination History Hx Tetanus, Diphtheria Vaccination: Yes Hx Influenza Vaccination: Yes Hx Pneumococcal Vaccination: Yes - Social History Hx Tobacco Use: Yes Hx Chewing Tobacco Use: No Hx Alcohol Use: No Hx Substance Use: No Hx Substance Use Treatment: No Hx Depression: No Hx Physical Abuse: No Hx Emotional Abuse: No Hx Suspected Abuse: No <Jill Arriazay Rekha - Last Filed: 06/14/16 18:37> Family Medical History - Family History Mother Family History: Unknown Living Status: Hx Family Asthma: No Hx Family Congestive Heart Failure: No Hx Family Hypertension: No Hx Family Stroke: No Hx Cardiac Disease: No Hx Family Diabetes: Yes - mother Hx Family Cancer: No Hx Family;Other: patient uncoperative <Jill Arriazajovany Da Silva - Last Filed: 06/14/16 18:37> Physical Exam - Physical Exam General Appearance: Alert, No apparent distress Eye Exam: bilateral normal Ears, Nose, Throat: hearing grossly normal, normal ENT inspection - poor dentition. his face is covered with calamine lotion Neck: non-tender, full range of motion, supple Respiratory: chest non-tender, lungs clear, normal breath sounds, no respiratory distress, no accessory muscle use Cardiovascular/Chest: normal peripheral pulses, regular rate, rhythm, no edema - mild sinus tachycardia Peripheral Pulses: radial,right: 2+, radial,left: 2+, dorsalis pedis,right: 2+, dorsalis pedis,left: 2+ Gastrointestinal/Abdominal: soft - wall masses. No rebound or peritoneal signs. Generalized discomfort is present. Bowel sounds are active. Rectal Exam: deferred Back Exam: normal inspection, no CVA tenderness, no vertebral tenderness Extremity: normal range of motion, non-tender, no pedal edema, normal capillary refill, other - he does have decreased sensation in bilateral lower extremities Neurologic: oriented x 3 - he is anxious. He is alert. Cranial nerves appear grossly normal. Skin Exam: normal color <Jez Arriaza L - Last Filed: 06/14/16 18:37> Progress - Results/Orders Results/Orders: 06/14/16 06/14/16 06/14/16 16:58 18:10 19:06 Temperature 98.8 F Pulse Rate [ 85 87 85 Left Radial] Respiratory 20 20 20 Rate Blood Pressure 130/76 117/82 118/71 [Right Arm] O2 Sat by Pulse 95 96 94 L Oximetry 06/14/16 20:22 Temperature Pulse Rate [ 80 Left Radial] Respiratory 18 Rate Blood Pressure 135/86 [Right Arm] O2 Sat by Pulse 97 Oximetry 06/14/16 17:23 Telemetry .CONTINUOUS 06/14/16 17:25 AMYLASE Stat B-TYPE NATRIURETIC PEPTIDE/BNP Stat CARDIAC ENZYME GROUP Stat COMPLETE METABOLIC PROFILE Stat LIPASE Stat 06/14/16 18:00 HYDROmorphone HCL INJ [Dilaudid INJ] 1 mg IV ONCE 06/14/16 18:38 Sodium Chloride 0.9% 1000ML [Ns 1000 ml] 1,000 ml IVS ONCE 06/14/16 19:00 Insulin, Reg.(Human) [HumuLIN R] 250 u Sodium Chl 0.9% 250Ml (Carlien) [NS 250ml (CARLINE)] 247.5 ml IVPB .Q24H Laboratory Results WBC 6.5 K/mm3 (4.8-10.8) 06/14/16 17:24 RBC 4.82 M/mm3 (4.70-6.10) 06/14/16 17:24 Hgb 13.2 gm/dL (14.0-18.0) L 06/14/16 17:24 Hct 41.8 % (42.0-52.0) L 06/14/16 17:24 MCV 86.8 fl (80.0-94.0) 06/14/16 17:24 MCH 27.3 pg (27.0-31.0) 06/14/16 17:24 MCHC 31.5 g/dL (33.0-37.0) L 06/14/16 17:24 RDW 14.2 % (11.5-14.5) 06/14/16 17:24 Plt Count 336 K/mm3 (130-400) 06/14/16 17:24 MPV 8.8 fl (7.40-10.4) 06/14/16 17:24 Absolute Neuts (auto) 4.80 K/uL (1.8-6.8) 06/14/16 17:24 Absolute Lymphs (auto) 1.20 K/uL (1.0-3.4) 06/14/16 17:24 Absolute Monos (auto) 0.40 K/uL (0.2-0.8) 06/14/16 17:24 Absolute Eos (auto) 0.10 K/uL (0.0-0.4) 06/14/16 17:24 Absolute Basos (auto) 0.10 K/uL (0.0-0.1) 06/14/16 17:24 Neutrophils % 74.1 % (42.0-78.0) 06/14/16 17:24 Lymphocytes % 18.3 % (20.0-50.0) L 06/14/16 17:24 Monocytes % 5.8 % (2.0-9.0) 06/14/16 17:24 Eosinophils % 0.9 % (1.0-5.0) L 06/14/16 17:24 Basophils % 0.9 % (0.0-2.0) 06/14/16 17:24 Sodium 121 mmol/L (135-145) L 06/14/16 17:25 Potassium 4.6 mmol/L (3.6-5.0) 06/14/16 17:25 Chloride 88 mmol/L (101-111) L 06/14/16 17:25 Carbon Dioxide 24 mmol/L (21-31) 06/14/16 17:25 Anion Gap 13.6 (12-18) 06/14/16 17:25 BUN 27 mg/dL (7-18) H 06/14/16 17:25 Creatinine 1.30 mg/dL (0.6-1.3) 06/14/16 17:25 BUN/Creatinine Ratio 20.8 (10-20) H 06/14/16 17:25 POC Glucose 236 mg/dL (70-105) H 06/14/16 21:11 Random Glucose 483 mg/dL (70-105) H* 06/14/16 19:40 Serum Osmolality Not Reportable 06/14/16 17:25 Calcium 8.6 mg/dL (8.4-10.2) 06/14/16 17:25 Total Bilirubin 0.7 mg/dL (0.2-1.0) 06/14/16 17:25 AST 20 IU/L (10-42) 06/14/16 17:25 ALT 15 IU/L (10-60) 06/14/16 17:25 Alkaline Phosphatase 95 IU/L (42-121) 06/14/16 17:25 Creatine Kinase 91 IU/L (38-174) 06/14/16 17:25 CK-MB (CK-2) 4.0 ng/mL (0.0-4.4) 06/14/16 17:25 Troponin I 0.03 ng/mL (0.01-0.05) 06/14/16 17:25 B-Natriuretic Peptide 6.0 pg/ml (0-100) 06/14/16 17:25 Serum Total Protein 7.4 gm/dL (6.4-8.2) 06/14/16 17:25 Albumin 3.8 g/dl (3.2-5.5) 06/14/16 17:25 Globulin 3.6 gm/dL (2.3-3.5) H 06/14/16 17:25 Albumin/Globulin Ratio 1.1 (1.1-1.9) 06/14/16 17:25 Amylase 51 U/L (28-100) 06/14/16 17:25 Lipase 40 U/L (22-51) 06/14/16 17:25 Urine Color Yellow (Yellow) 06/14/16 17:30 Urine Appearance Clear (Clear) 06/14/16 17:30 Urine pH 5.0 (4.5-7.8) 06/14/16 17:30 Ur Specific [employer] <= 1.005 (1.005-1.030) 06/14/16 17:30 Urine Protein Negative mg/dL 06/14/16 17:30 Urine Glucose (UA) >=1000 mg/dL (Negative) H 06/14/16 17:30 Urine Ketones Negative mg/dL (NEGATIVE) 06/14/16 17:30 Urine Blood Trace-intact (Negative) H 06/14/16 17:30 Urine Nitrite Negative 03/05/17 17:30 Urine Bilirubin Negative (NEGATIVE) 06/14/16 17:30 Urine Urobilinogen 0.2 mg/dL (0.2-1.0) 06/14/16 17:30 Ur Leukocyte Esterase Negative (Negative) 06/14/16 17:30 Urine RBC 0-1 /hpf 06/14/16 17:30 Urine WBC 0 /hpf 06/14/16 17:30 Ur Epithelial Cells 0-1 /hpf 06/14/16 17:30 Urine Bacteria Rare 06/14/16 17:30 FSBS @ 2111: 236 <Shannon Davila - Last Filed: 06/14/16 21:43> Departure <Jez Arriaza - Last Filed: 06/14/16 18:37> - Departure Time of Disposition: 21:43 <Shannon Davila - Last Filed: 06/14/16 21:43> - Departure Clinical Impression: Hyperosmolar non-ketotic state in patient with type 2 diabetes mellitus, Fecal impaction Disposition: Admit Patient Condition: Poor Home Medications: Ambulatory Orders RX: Docusate Sodium 100 mg PO BID 01/31/16 RX: Polyethylene Glycol 3350 [Miralax] 17 gm PO QDAC #30 pckt 05/03/16 RX: Insulin Detemir [Levemir Pen] 15 units SUBCU BID #0 pen 05/18/16 RX: Lisinopril 10 mg PO DAILY #30 tab 05/18/16 RX: metFORMIN HCL [Glucophage] 500 mg PO BIDFD #60 tab 05/18/16 Decision To Admit - Decistion To Admit Decision to Admit Reason: Medical Nature Decision to Admit Date: 06/14/16 Decision to Admit Time: 21:00 <Shannon Davila - Last Filed: 06/14/16 21:43> Addendum entered and electronically signed by Jez Arriaza MD 06/14/16 18:38 : Departure - Departure Disposition: Discharge to Home or Self Care Departure Forms: ED Discharge - Pt. Copy, Patient Portal Self Enrollment Instructions: DI for Abdominal Pain-Adult Home Medications: Ambulatory Orders Docusate Sodium 100 mg PO BID 01/31/16 Polyethylene Glycol 3350 [Miralax] 17 gm PO QDAC #30 pckt 05/03/16 Insulin Detemir [Levemir Pen] 15 units SUBCU BID #0 pen 05/18/16 Lisinopril 10 mg PO DAILY #30 tab 05/18/16 metFORMIN HCL [Glucophage] 500 mg PO BIDFD #60 tab 05/18/16 ED Addendum - ED Addendum Addendum: Laboratory Tests 06/14/16 06/14/16 06/14/16 17:24 17:25 17:30 WBC 6.5 RBC 4.82 Hgb 13.2 L Hct 41.8 L MCV 86.8 MCH 27.3 MCHC 31.5 L RDW 14.2 Plt Count 336 MPV 8.8 Absolute Neuts (auto) 4.80 Absolute Lymphs (auto) 1.20 Absolute Monos (auto) 0.40 Absolute Eos (auto) 0.10 Absolute Basos (auto) 0.10 Neutrophils % 74.1 Lymphocytes % 18.3 L Monocytes % 5.8 Eosinophils % 0.9 L Basophils % 0.9 Sodium 121 L Potassium 4.6 Chloride 88 L Carbon Dioxide 24 Anion Gap 13.6 BUN 27 H Creatinine 1.30 BUN/Creatinine Ratio 20.8 H Random Glucose 1001 H* Serum Osmolality Not Reportable Calcium 8.6 Total Bilirubin 0.7 AST 20 ALT 15 Alkaline Phosphatase 95 Creatine Kinase 91 CK-MB (CK-2) 4.0 Troponin I 0.03 B-Natriuretic Peptide 6.0 Serum Total Protein 7.4 Albumin 3.8 Globulin 3.6 H Albumin/Globulin Ratio 1.1 Amylase 51 Lipase 40 Urine Color Yellow Urine Appearance Clear Urine pH 5.0 Ur Specific [employer] <= 1.005 Urine Protein Negative Urine Glucose (UA) >=1000 H Urine Ketones Negative Urine Blood Trace-intact H Urine Nitrite Negative Urine Bilirubin Negative Urine Urobilinogen 0.2 Ur Leukocyte Esterase Negative Urine RBC 0-1 Urine WBC 0 Ur Epithelial Cells 0-1 Urine Bacteria Rare the patient is being signed off to Dr. Davila.
[2016-06-14] MEDS ORDERED: INSULIN, REG.(HUMAN) 250 UNITS in SODIUM CHL 0.9% 250ML (AVIVA) 247.5 ML IVPB SCH ×2 (19:00)
[2016-06-14] MEDS ORDERED: SODIUM CHL 0.9% 250ML (AVIVA) 250 ML IVPB ONE (19:11)
[2016-06-14] MEDS ORDERED: SODIUM CHLORIDE 0.9% 250ML 0 ML ONE (19:12)
[2016-06-14] MEDS ORDERED: INSULIN, REG.(HUMAN) 100 U/ML VIAL ONE (19:12)
--- NOTE | 2016-06-14 21:45 | HP ---
HISTORY OF PRESENT ILLNESS: This 61-year-old, white male who lives alone in [place] is admitted to the hospital from the Emergency Room after being found to have a very high glucose over 1000 and requiring specialized support and vigorous treatment. In the Emergency Room, he did receive some IV fluids as well as insulin and insulin infusion to assist in getting his glucose down from over 1000 down to the 200s. He also required fluid resuscitation. He admitted to not feeling well and with some abdominal discomfort resulting in him not taking his insulin because he was not eating normally. He has had similar problems about a month ago when he was admitted to the hospital complaining of the sensation of having bugs crawling all over his skin, especially his face. He has had a history of methamphetamine use on a chronic basis, most recently about three days ago. He has a history of diabetes mellitus for the last 21 years for which he was on pills, but they did not help, so here recently he has been on insulin. He does not follow a diabetic diet, nor is he very active and , in fact, he states he "cannot walk." He lives at home alone. Further support and investigation is in progress. The patient is admitted to the hospital for fluid hydration as well as support and close followup following. PAST MEDICAL HISTORY: 1. Diabetes mellitus for 21 years, currently on insulin therapy, but the patient is noncompliant with diet, exercise, and/or insulin administration. 2. History of psoriasis. PAST SURGICAL HISTORY: 1. Appendectomy. 2. Left knee surgery. 3. Hernia repair. CURRENT MEDICATIONS: The patient most recently has been on 15 units of Levemir twice daily and some as needed NovoLog rapid acting insulin before meals. ALLERGIES: NONE KNOWN. FAMILY HISTORY: Positive for diabetes and cancer. 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 He does smoke methamphetamine on a daily basis, but he does not smoke tobacco, but he does use smokeless tobacco. REVIEW OF SYSTEMS: GENERAL: The patient has had some weight loss recently. LUNGS: No significant shortness of breath except on exertion, occasional cough evident. CARDIOVASCULAR: No palpitations or chest pains. GASTROINTESTINAL: Some abdominal pain is noted with constipation with him feeling very full, which is documented on x-ray examination of the abdomen. NEUROLOGIC: No history of seizures, no focal weakness. PHYSICAL EXAMINATION: VITAL SIGNS: Afebrile. Pulse 79. Blood pressure 121/70. Pulse oximetry 97% on room air. Weight 58.9 kg. GENERAL: The patient is able to answer questions quite well. He states he cannot walk, but he is able to actively move his extremities. He does not wish to go home until he has been "cured." HEENT: His face has many areas of desquamating skin suggesting a generalized psoriatic or especially dry skin condition. He is rubbing his face and complaining of bugs crawling on his skin. NECK: Supple. LUNGS: Diminished breath sounds, otherwise fairly clear. CARDIOVASCULAR: Heart tones are regular without any significant gallops. ABDOMEN: Soft with no organomegaly, masses or tenderness. EXTREMITIES: Somewhat thin, but able to have good range of motion. NEUROLOGIC: No focal neurological deficits are noted. The patient is otherwise awake, alert, and fairly well oriented. LABORATORY: White count 6,500 with 74% neutrophils. Hemoglobin 13.2. Chemistries show sodium very low at 121, but when corrected due to the hyperglycemia, sodium is approximately 143. CO2 normal at 24, BUN 27, creatinine 1.3, glucose 1001. The patient was started on 10 units of IV Regular insulin and then insulin infusion and sugar within 4 hours was down to 236 at which time the infusion was stopped and he was given some food and tray and was readied for his ongoing admission to the hospital for stabilization as IV fluids continued. Urine shows glycosuria and some hematuria. No cultures obtained. Abdominal x-ray reveals marked distention with fecal impaction and fecal stasis no doubt contributed to by the diabetes, poorly controlled. ASSESSMENT: 1. Abdominal pain. 2. History of diabetes mellitus on insulin therapy, poorly controlled with extremely poor compliance. 3. Hyperosmolar, nonketotic hyperglycemic state, primarily due to a lack of insulin administration. 4. Significant fecal stasis and fecal impaction, now doubt contributing and augmenting the abdominal pain. 5. Moderate dehydration. 6. History of hypertension. 7. Coccyx ulceration, stage 2, by history. 8. Recent weight gain. PLAN: The patient is admitted to the hospital for stabilization. He will have continued half normal saline because of the correction in the hyponatremic status. We will add MVI, thiamine and nutrients to the solution for IV administration. We will need recalculate and adjust his Levemir dosing to help manage his diabetes. Close followup of his metabolic status. The patient will require close followup in the outpatient department. #[id number] [facility]
[2016-06-14] MEDS ORDERED: DEXTROSE 50% 25 GM/50 ML SYG IV PRN (21:59)
[2016-06-14] MEDS ORDERED: GLUCAGON INJ 1 MG VIAL SUBCU PRN (21:59)
[2016-06-14] MEDS ORDERED: MAGNESIUM HYDROXIDE 30 ML UD PO PRN (21:59)
[2016-06-14] MEDS ORDERED: ACETAMINOPHEN 325 MG TAB PO PRN (21:59)
[2016-06-14] MEDS ORDERED: IV SET AND CAP CHANGE INJ INJ SCH (22:00)
[2016-06-14] MEDS ORDERED: MAGNESIUM CITRATE 300 ML BTTL PO ONE (22:13)
[2016-06-14] MEDS ORDERED: INSULIN DETEMIR 100 UNITS/ML PEN SUBCU ONE (22:34)
[2016-06-15] MEDS: IPRATROPIUM/ALBUTEROL 3 ML VIAL INH SCH ×5 (00:03→19:46)
[2016-06-15] MEDS ORDERED: SODIUM PHOS/BIPHOS ENEMA ADULT 133 ML BTTL PR ONE (01:10)
[2016-06-15] MEDS ORDERED: MINERAL OIL 133 ML BTTL PR ONE (01:10)
[2016-06-15] MEDS ORDERED: KCL 20MEQ/0.45% NS 1,000 ML IVS ONE (01:30)
[2016-06-15] MEDS ORDERED: THIAMINE HCL INJ 100 MG/ML VIAL ONE (01:34)
[2016-06-15] MEDS: SODIUM CHLORIDE 0.45% 1000ML 1,000 ML IVS PRN ×2 (01:44→06:28)
[2016-06-15] MEDS ORDERED: INSULIN LISPRO 100 UNITS/ML PEN SUBCU ONE (05:04)
[2016-06-15] MEDS: OMEPRAZOLE CAP 20 MG CAP PO SCH (06:18)
[2016-06-15] MEDS ORDERED: MULTIPLE VITAMIN 10 ML VIAL ONE ×2 (06:21→13:10)
[2016-06-15] MEDS ORDERED: INSULIN DETEMIR 100 UNITS/ML PEN SUBCU ONE ×3 (07:20→21:02)
[2016-06-15] MEDS: INSULIN LISPRO 100 UNITS/ML PEN SUBCU SCH ×4 (07:40→21:31)
[2016-06-15] MEDS: metFORMIN HCL 500 MG TAB PO SCH ×2 (07:41→16:48)
[2016-06-15] MEDS ORDERED: SODIUM CHLORIDE 0.9% 10 ML VIAL IV PRN (08:21)
[2016-06-15] MEDS: LISINOPRIL 10 MG TAB PO SCH (09:47)
[2016-06-15] MEDS ORDERED: MULTIPLE VITAMIN INJ 10 ML in SODIUM CHLORIDE 0.9% 1000ML 1,000 ML IVS PRN (12:45)
[2016-06-15] MEDS ORDERED: SODIUM CHLORIDE 0.9% 1000ML 1,000 ML ONE (13:10)
[2016-06-15] MEDS ORDERED: MAGNESIUM HYDROXIDE 30 ML UD PO ONE (15:20)
--- NOTE | 2016-06-15 15:47 | PN ---
DATE: 06/15/16 SUBJECTIVE: Unable to give a large soapsuds enema last evening, so was able to give him a Fleet's oil retention with followup Fleet's as well as mag citrate. He had a large amount of bowel movements and states he still has more inside, so this will also be continued to be sought after during the day today. Appetite is a little better now as he is now beginning to eat where before at breakfast time, he even refused his tray because of his abdominal discomfort. OBJECTIVE: VITAL SIGNS: Afebrile. Pulse 86. Pulse oximetry 96% on room air. LUNGS: Clear with diminished breath sounds. HEART: Regular, though somewhat distant. ABDOMEN: Fairly good bowel tones. Mild epigastric tenderness upon palpation. LABORATORY: White count 7,700, hemoglobin down to 12.7. Glucose has gone from 1000 now down to 78 at 9:50 in the morning after hydration overnight. Stool occult blood was positive for blood. ASSESSMENT: 1. Acute abdominal pain with associated fecal stasis and fecal impaction, requiring ongoing treatment to assist with the constipation relieved, then to observe an improved appetite and nutrition support. 2. Chronic diabetes on insulin therapy, poorly controlled with poor compliance. 3. Significant state of hyperosmolar, nonketotic hyperglycemic. 4. Dehydration requiring parenteral fluid supplementation. 5. Hypertension. 6. History of coccyx ulcer, stage 2. PLAN: Continue with gentle laxatives as well as some p.r.n. enemas. Get a shower today which was refused last night. Try to get adequate lotion on with fairly significant scaling of the skin, especially around the face suggesting psoriasis or seborrheic presentation. Will try some local applications of some corticosteroid cream and see if it helps the sensation of bugs that the patient has become obsessed with. Close observation and followup. Physical therapy will attempt to walk to check for safety since he lives alone. The patient states he wants to stay in the hospital until he is healed. Close followup suggested. #[id number] [facility]
[2016-06-15] MEDS: traMADol HCL 50 MG TAB PO PRN ×2 (15:48→22:30)
[2016-06-16] MEDS: SODIUM CHLORIDE 0.9% (FLUSH) 10 ML SYG IV PRN ×2 (02:55→20:33)
[2016-06-16] MEDS: OMEPRAZOLE CAP 20 MG CAP PO SCH (06:10)
[2016-06-16] MEDS ORDERED: INSULIN DETEMIR 100 UNITS/ML PEN SUBCU ONE ×2 (07:14→18:54)
[2016-06-16] MEDS: metFORMIN HCL 500 MG TAB PO SCH ×2 (08:06→16:48)
[2016-06-16] MEDS: INSULIN LISPRO 100 UNITS/ML PEN SUBCU SCH ×4 (08:08→21:04)
[2016-06-16] MEDS: IPRATROPIUM/ALBUTEROL 3 ML VIAL INH SCH ×4 (08:45→21:00)
[2016-06-16] MEDS: traMADol HCL 50 MG TAB PO PRN (09:00)
[2016-06-16] MEDS: LISINOPRIL 10 MG TAB PO SCH (09:00)
[2016-06-16] MEDS ORDERED: PYRETHRINS-PIPERONYL BUTOXIDE 1 APPLIC BTTL TOP ONE (09:20)
[2016-06-16] MEDS: diphenhydrAMINE HCL 25 MG CAP PO PRN ×2 (10:10→20:56)
--- NOTE | 2016-06-16 10:13 | PN ---
DATE: 06/16/16 SUBJECTIVE: The patient still with marked itching of scalp and skin. Examination does show small nits on some of the hair shafts, especially on the left side of his head with an isolated lice insect present. The patient will be treated specifically with two treatments of pyrethrin chemical leaving on the skin and the hair for at least 20 minutes each time today, then rinsing thoroughly in the shower. Try Benadryl as needed for itch. OBJECTIVE: GENERAL: The patient in many ways seems to be more alert today. LUNGS: Clear. HEART: Regular, somewhat distant. ABDOMEN: Soft. LABORATORY: Hemoglobin 11.9, white count 8,300. Sugar was up to 548 at 9 o' clock last evening and is down to 101 fasting this morning. He was given around 2/3 of his long acting insulin this morning and the evening insulin dose is yet to be determined. Increase activities today with walking. ASSESSMENT: 1. Acute abdominal pain with associated fecal stasis and fecal impaction, showing some improvement after enemas and laxatives given. 2. Chronic diabetes on insulin therapy, poorly controlled with poor compliance at home with adjustments of medications being made several times a day. 3. Significant state on admission of hyperosmolar, nonketotic, hyperglycemic state. 4. Dehydration, on supplement fluid. 5. Hypertension. 6. History of coccyx ulcer, stage 2. 7. Documented evidence of lice infestation of the hair and skin and treatment initiated. PLAN: We will continue with pyrethrin shampoo twice a day with contact and then rinse. Increase activity level. Continue with adjusting diabetic treatment program and arrange for close followup after discharge when stable. #[id number] [facility]
[2016-06-16] MEDS: PYRETHRINS-PIPERONYL BUTOXIDE 1 APPLIC BTTL TOP ONE ×2 (14:08→14:17)
[2016-06-16] MEDS ORDERED: ONDANSETRON 4 MG TAB PO PRN (20:11)
[2016-06-17] MEDS: OMEPRAZOLE CAP 20 MG CAP PO SCH (06:04)
[2016-06-17 06:28] VITALS: TEMP 98.3
[2016-06-17] MEDS: INSULIN LISPRO 100 UNITS/ML PEN SUBCU SCH ×2 (07:34→11:37)
[2016-06-17] MEDS: metFORMIN HCL 500 MG TAB PO SCH (07:43)
[2016-06-17] MEDS: LISINOPRIL 10 MG TAB PO SCH (08:59)
[2016-06-17] MEDS: SODIUM CHLORIDE 0.9% (FLUSH) 10 ML SYG IV PRN (08:59)
[2016-06-17] MEDS: IPRATROPIUM/ALBUTEROL 3 ML VIAL INH SCH ×3 (09:19→12:40)
[2016-06-17] MEDS ORDERED: INSULIN DETEMIR 100 UNITS/ML PEN SUBCU SCH ×2 (10:00→21:00)
[2016-06-17 10:23] VITALS: BP 112/67; O2SAT 98
[2016-06-17] MEDS: traMADol HCL 50 MG TAB PO PRN (11:48)
--- NOTE | 2016-06-17 13:55 | DS ---
DISCHARGE DIAGNOSIS: 1. Abdominal pain with associated fecal stasis and impaction, showing improvement after repeat enemas and laxatives have been given.. 2. Chronic diabetes mellitus on insulin therapy, poorly controlled with poor compliance at home with adjustments of medications having to be made several times a day to assist with control and continued education. 3. Significant state on admission of hyperosmolar, nonketotic, hyperglycemic state with glucose greater than 111. 4. Significant dehydration requiring supplemental fluids. 5. History of hypertension. 6. History of coccyx ulceration, stage 2. 7. Chronic pruritus with sensation of bugs all over his body, yet none visualized. Possibly a complication of chronic methamphetamine usage. Encouraged to stop completely, but also to provide lotion to prevent dry skin. HISTORY OF PRESENT ILLNESS: This 61-year-old, white male was admitted to the hospital via the Emergency Room with abdominal pain and inability to walk. He was quite ill with a glucose over 1000. He required insulin infusion as well as a bolus, which brought his sugars down fairly quickly, which was continued to be monitored as the patient was admitted to the hospital. Sensation of bugs crawling all over his skin was also noted and required specific skin moisturization process. Some of his anxiety and shakiness may have also been due to some withdrawal symptoms from methamphetamine use, which he has been on for a long time. LABORATORY: White count remained normal and was 8,300 with 60% neutrophils on discharge. Hemoglobin was 11.9. Chemistries showed sugar eventually normalizing at around 200, but it was well over 1000 when he came in. It subsequently reduced to about 230 after about 4 hours and then treatment course was altered to allow the sugar to come down more slowly. The CO2 remained normal, so evidence of significant ketosis was evident. Liver enzymes were normal. Repeat potassium was 4.5, down to 3.9. Kidney function on discharge showed BUN normalized to 17, creatinine 0.69. He was eventually more stabilized on approximately 24 units in the morning of Levemir and 16 units in the evening. The patient is poorly compliant and admitted to skipping his insulin completely for many days before his arrival to the hospital. He lives at home alone. Stool guaiac was positive on one testing. Abdominal x-ray did reveal evidence of significant fecal impaction and fecal stasis. HOSPITAL COURSE: The patient required significant nursing input. He many times would refuse to walk and refuse his breathing treatment. In fact, at the time of his discharge, he felt that he wanted to stay at least two or three more days because he lives alone and was concerned that he would not do well at home. His landlord was available to assist him in picking him up at the time of discharge. He was ready to continue with outpatient management reluctantly and specific appointments were made for followup at [facility]. PLAN: The patient is discharged home with his skin appearing to be much better and less noticeable itching present. He is to be discharged home. He is to continue on a special diabetic diet and a vigorous frequent exercise program to assist with diabetes control. He is to take his insulin on a regular basis whether he is hungry and eating or not with special followup with [facility]. His home medicines will be continued, to which will be added MiraLAX 17 grams daily with plenty of water intake. His Levemir is to be taken 24 units in the morning and 16 units in the evening to be adjusted based upon his glucose response to the insulin. His appointment with [facility] is 06/22/16 at 1 o'clock. He is especially to adhere closely to insulin administration and diabetic diet input. Contact the clinic to assist with decisions on insulin dosings when possible. Avoid constipation. Walk daily. Use lotion on the skin to keep it moist. Avoid all methamphetamine intake. Return if not improving. #[id number] [facility]
== END 2016-06-17 16:00 | disposition home or self-care (01) | DRG 638 ==
LOC: ER 16:41 → OBSVTOIN 21:43 → MS 21:43
PROVIDERS: ADMIT Emergency Medicine; ATTEND Emergency Medicine
DX: E11.00 Type 2 diabetes mellitus with hyperosmolarity without nonketotic hyperglycemic-hyperosmolar coma (NKHHC) (principal); F15.93 Other stimulant use, unspecified with withdrawal; K56.41 Fecal impaction; E11.65 Type 2 diabetes mellitus with hyperglycemia; E86.0 Dehydration; I10 Essential (primary) hypertension; L89.152 Pressure ulcer of sacral region, stage 2; L29.9 Pruritus, unspecified; T38.3X6A Underdosing of insulin and oral hypoglycemic [antidiabetic] drugs, initial encounter; Z60.2 Problems related to living alone; Z91.128 Patient's intentional underdosing of medication regimen for other reason; Z91.11 Patient's noncompliance with dietary regimen; Y92.009 Unspecified place in unspecified non-institutional (private) residence as the place of occurrence of the external cause

== ENCOUNTER 2016-07-11 02:33 | Emergency (ER) | payer MEDICAID, OTHER ==
[2016-07-11 03:39] VITALS: O2SAT 98
--- NOTE | 2016-07-11 03:53 | RAD ---
EXAM: Two view(s) of the left wrist. INDICATION: Pain. COMPARISON: None. FINDINGS: No acute fracture or dislocation. No large soft tissue swelling. IMPRESSION: 1. No acute fracture. Electronically signed by: Jaquan Newell MD 07/11/2016 3:52 AM CDT
[2016-07-11] MEDS ORDERED: IBUPROFEN 200 MG TAB PO ONE (04:14)
--- NOTE | 2016-07-11 04:17 | ED.PDOC ---
History of Present Illness - General Chief Complaint: Upper Extremity Injury Stated Complaint: left wrist pain Time Seen by Provider: 07/11/16 02:35 Source: patient Exam Limitations: no limitations - History of Present Illness Initial Comments: the patient is a 61-year-old male presenting to the emergency room secondary to left wrist pain for the last 3 hours. The patient was pushing up from a seated position when he hurt his left wrist towards the lateral distal radius. He appears to be intact neurovascularly in the upper extremity. Tendon function appears to be preserved. I feel no deformity. I see no bruising. He reports pain in the area with both active and passive range of motion. No other injuries. No skin laceration. Occurred: this evening Pain - Upper Extremity: mild: Wrist, left Method of Injury: other Improving Factors: immobilization Worsening Factors: movement Allergies/Adverse Reactions: Allergies NO KNOWN ALLERGY Allergy (Verified 07/11/16 03:32) Home Medications: Ambulatory Orders metFORMIN HCL [Glucophage] 500 mg PO BIDFD #60 tab 05/18/16 Polyethylene Glycol 3350 [Miralax] 17 gm PO QAM #30 pckt 06/17/16 Insulin Detemir [Levemir] 30 unit SUBCU BID 07/11/16 Review of Systems - Review of Systems Constitutional: States: no symptoms reported EENTM: States: no symptoms reported Respiratory: States: no symptoms reported Cardiology: States: no symptoms reported Gastrointestinal/Abdominal: States: no symptoms reported Genitourinary: States: no symptoms reported Musculoskeletal: States: see HPI Skin: States: no symptoms reported Neurological: States: anxiety Endocrine: States: no symptoms reported All other Systems: No Change from Baseline Past Medical History (General) - Patient Medical History Hx Seizures: No Hx Stroke: No Hx Asthma: No Hx of COPD: No Hx Cardiac Disorders: No Hx Congestive Heart Failure: No Hx Pacemaker: No Hx Hypertension: No Hx Diabetes: Yes Hx Gastroesophageal Reflux: No Hx Renal Disease: No Hx Cancer: No Hx MRSA: No - Vaccination History Hx Tetanus, Diphtheria Vaccination: Yes Hx Influenza Vaccination: Yes Hx Pneumococcal Vaccination: Yes - Social History Hx Tobacco Use: Yes Hx Chewing Tobacco Use: No Hx Alcohol Use: No Hx Substance Use: Yes - Meth 4 to 5 days ago Hx Substance Use Treatment: No Hx Depression: No Hx Physical Abuse: No Hx Emotional Abuse: No Hx Suspected Abuse: No Family Medical History - Family History Mother Family History: Unknown Living Status: Hx Family Asthma: No Hx Family Congestive Heart Failure: No Hx Family Hypertension: No Hx Family Stroke: No Hx Cardiac Disease: No Hx Family Diabetes: Yes - mother Hx Family Cancer: No Hx Family;Other: patient uncoperative Physical Exam - Physical Exam General Appearance: Alert, Anxious, No apparent distress Eyes, Ears, Nose, Throat Exam: PERRL/EOMI, other - poor dentition Neck: full range of motion, supple Cardiovascular/Respiratory: normal peripheral pulses, no respiratory distress Shoulder Exam: normal inspection, non-tender, no evidence of injury, normal ROM Elbow/Forearm Exam: normal inspection, non-tender, no evidence of injury, normal ROM Wrist Exam: pain, soft tissue tenderness Hand Exam: normal inspection, non-tender, no evidence of injury, normal ROM Neuro/Tendon: normal sensation, normal motor functions, normal tendon functions Mental Status: alert, oriented x 3 Comments: Vital Signs - 24 hr 07/11/16 03:34 Temperature 96.9 F L Pulse Rate [ 87 left] Respiratory 18 Rate Blood Pressure 107/79 [left] O2 Sat by Pulse 98 Oximetry Progress - Progress Progress: 07/11/16 04:18 the patient is a 61-year-old male presenting with a left wrist strain. No evidence of fracture or dislocation was seen on the x-ray. No deformity was found on physical exam. The patient can use an Steven wrap for the next few days to help reduce irritation. Additionally he continues ibuprofen 3 times daily with food for the next 3-4 days to help reduce discomfort. Reevaluation can be performed if symptoms worsen. ER warnings were given. - Results/Orders Results/Orders: x-ray of the wrist shows no evidence of fracture or dislocation. Departure - Departure Clinical Impression: Wrist strain Qualifiers: Encounter type: initial encounter Laterality: left Qualifier Code: (S66.912A) Strain of unspecified muscle, fascia and tendon at wrist and hand level, left hand, initial encounter Disposition: Discharge to Home or Self Care Condition: Fair Departure Forms: ED Discharge - Pt. Copy, Patient Portal Self Enrollment Instructions: DI for Wrist Sprain Diet: regular diet Activity: no pushing/pulling with affected limb Referrals: Eloise Durand NP [Primary Care Provider] - 1-2 Weeks Home Medications: Ambulatory Orders metFORMIN HCL [Glucophage] 500 mg PO BIDFD #60 tab 05/18/16 Polyethylene Glycol 3350 [Miralax] 17 gm PO QAM #30 pckt 06/17/16 Insulin Detemir [Levemir] 30 unit SUBCU BID 07/11/16 Additional Instructions: the patient is a 61-year-old male presenting with a left wrist strain. No evidence of fracture or dislocation was seen on the x-ray. No deformity was found on physical exam. The patient can use an Steven wrap for the next few days to help reduce irritation. Additionally he continues ibuprofen 3 times daily with food for the next 3-4 days to help reduce discomfort. Reevaluation can be performed if symptoms worsen. ER warnings were given.
[2016-07-11] MEDS ORDERED: ACETAMINOPHEN-CAFF-BUTALBITAL 1 EA TAB PO SCH (04:30)
[2016-07-11 05:08] VITALS: BP 104/71; TEMP 97.7
== END 2016-07-11 04:45 | disposition home or self-care (01) ==
LOC: ER 02:33
DX: S66.912A Strain of unspecified muscle, fascia and tendon at wrist and hand level, left hand, initial encounter (principal); E11.9 Type 2 diabetes mellitus without complications; Z79.4 Long term (current) use of insulin; Z79.899 Other long term (current) drug therapy; Z87.891 Personal history of nicotine dependence; X50.9XXA Other and unspecified overexertion or strenuous movements or postures, initial encounter; Y92.9 Unspecified place or not applicable

== ENCOUNTER 2016-07-20 14:52 | Emergency (ER) | payer MEDICAID, OTHER ==
[2016-07-20] MEDS ORDERED: SODIUM CHLORIDE 0.9% 1000ML 1,000 ML IVS ONE (15:17)
[2016-07-20] MEDS ORDERED: KETOROLAC TROMETHAMINE INJ 30 MG/ML VIAL IV ONE (15:17)
--- NOTE | 2016-07-20 15:19 | ED.PDOC ---
History of Present Illness - General Chief Complaint: General Stated Complaint: constipation and vomiting today Time Seen by Provider: 07/20/16 15:00 Source: patient, RN notes reviewed, Vital Signs reviewed Exam Limitations: no limitations - History of Present Illness Initial Comments: Patient is here with complaints of constipation that has not improved over the past month despite taking Miralax he was prescribed. Says he has only had one small bowel movement. He also is requesting pain medication due to hurting all over. Timing/Duration: constant - for over a month. Severity: moderate Improving Factors: nothing Worsening Factors: nothing Associated Symptoms: fever/chills, nausea/vomiting Allergies/Adverse Reactions: Allergies NO KNOWN ALLERGY Allergy (Verified 07/11/16 03:32) Home Medications: Ambulatory Orders RX: metFORMIN HCL [Glucophage] 500 mg PO BIDFD #60 tab 05/18/16 Polyethylene Glycol 3350 [Miralax] 17 gm PO QAM #30 pckt 06/17/16 Insulin Detemir [Levemir] 30 unit SUBCU BID 07/11/16 RX: Lactulose 20 gm PO GRACY-OTH-DAY #300 ml 07/20/16 Review of Systems - Review of Systems Constitutional: States: chills. Denies: diaphoresis, fever, malaise Respiratory: States: no symptoms reported Cardiology: States: no symptoms reported Gastrointestinal/Abdominal: States: abdominal pain, constipation, nausea. Denies: vomiting Genitourinary: States: frequency Musculoskeletal: States: other - generalized pain Skin: States: no symptoms reported Neurological: States: no symptoms reported Endocrine: States: increased urine Past Medical History (General) - Patient Medical History Hx Seizures: No Hx Stroke: No Hx Asthma: No Hx of COPD: No Hx Cardiac Disorders: No Hx Congestive Heart Failure: No Hx Pacemaker: No Hx Hypertension: No Hx Diabetes: Yes Hx Gastroesophageal Reflux: No Hx Renal Disease: No Hx Cancer: No Hx MRSA: No - Vaccination History Hx Tetanus, Diphtheria Vaccination: Yes Hx Influenza Vaccination: Yes Hx Pneumococcal Vaccination: Yes - Social History Hx Tobacco Use: Yes Hx Chewing Tobacco Use: No Hx Alcohol Use: No Hx Substance Use: Yes - Meth 4 to 5 days ago Hx Substance Use Treatment: No Hx Depression: No Hx Physical Abuse: No Hx Emotional Abuse: No Hx Suspected Abuse: No Family Medical History - Family History Mother Family History: Unknown Living Status: Hx Family Asthma: No Hx Family Congestive Heart Failure: No Hx Family Hypertension: No Hx Family Stroke: No Hx Cardiac Disease: No Hx Family Diabetes: Yes - mother Hx Family Cancer: No Hx Family;Other: patient uncoperative Physical Exam - Physical Exam General Appearance: Alert, Comfortable, No apparent distress, Unkempt Respiratory: chest non-tender, lungs clear, normal breath sounds, no respiratory distress, no accessory muscle use Cardiovascular/Chest: regular rate, rhythm, no edema, no gallop, no JVD, no murmur Gastrointestinal/Abdominal: soft, no organomegaly, no pulsatile mass, abnormal bowel sounds - hyperactive, tenderness - suprapubic & LLQ Extremity: normal range of motion, normal inspection Neurologic: alert, normal mood/affect, oriented x 3 Skin Exam: normal color, warm/dry Comments: Vital Signs - 24 hr 07/20/16 15:15 Temperature 97.5 F L Pulse Rate [ 78 PULSE OX] Respiratory 20 Rate Blood Pressure 124/85 [LEFT BRACHIAL] O2 Sat by Pulse 97 Oximetry Progress - Progress Progress: 07/20/16 16:30 Advised I would not give narcotics as they would worsen the constipation. Will give Tylenol X-ray continues to show constipation. Will give Lactulose and a soap suds enema. 07/20/16 17:16 Good result with enema. Will d/c home with Rx for Lactulose and instructions to use fleets enemas as needed. Stressed importance of follow up with [facility] this time for management of his Diabetes. - Results/Orders Results/Orders: Laboratory Last Values WBC 8.4 K/mm3 (4.8-10.8) 07/20/16 15:30 RBC 4.91 M/mm3 (4.70-6.10) 07/20/16 15:30 Hgb 13.8 gm/dL (14.0-18.0) L 07/20/16 15:30 Hct 41.8 % (42.0-52.0) L 07/20/16 15:30 MCV 85.1 fl (80.0-94.0) 07/20/16 15:30 MCH 28.1 pg (27.0-31.0) 07/20/16 15:30 MCHC 33.0 g/dL (33.0-37.0) 07/20/16 15:30 RDW 14.5 % (11.5-14.5) 07/20/16 15:30 Plt Count 361 K/mm3 (130-400) 07/20/16 15:30 MPV 7.3 fl (7.40-10.4) L 07/20/16 15:30 Absolute Neuts (auto) 6.30 K/uL (1.8-6.8) 07/20/16 15:30 Absolute Lymphs (auto) 1.50 K/uL (1.0-3.4) 07/20/16 15:30 Absolute Monos (auto) 0.50 K/uL (0.2-0.8) 07/20/16 15:30 Absolute Eos (auto) 0.10 K/uL (0.0-0.4) 07/20/16 15:30 Absolute Basos (auto) 0.10 K/uL (0.0-0.1) 07/20/16 15:30 Neutrophils % 74.8 % (42.0-78.0) 07/20/16 15:30 Lymphocytes % 17.3 % (20.0-50.0) L 07/20/16 15:30 Monocytes % 6.0 % (2.0-9.0) 07/20/16 15:30 Eosinophils % 1.2 % (1.0-5.0) 07/20/16 15:30 Basophils % 0.7 % (0.0-2.0) 07/20/16 15:30 Sodium 138 mmol/L (135-145) 07/20/16 15:30 Potassium 4.6 mmol/L (3.6-5.0) 07/20/16 15:30 Chloride 104 mmol/L (101-111) 07/20/16 15:30 Carbon Dioxide 27 mmol/L (21-31) 07/20/16 15:30 Anion Gap 11.6 (12-18) L 07/20/16 15:30 BUN 20 mg/dL (7-18) H 07/20/16 15:30 Creatinine 0.75 mg/dL (0.6-1.3) 07/20/16 15:30 BUN/Creatinine Ratio 26.7 (10-20) H 07/20/16 15:30 Random Glucose 155 mg/dL (70-105) H 07/20/16 15:30 Serum Osmolality 281.4 mOsm/L (275-295) 07/20/16 15:30 Calcium 9.4 mg/dL (8.4-10.2) 07/20/16 15:30 Total Bilirubin 1.0 mg/dL (0.2-1.0) 07/20/16 15:30 AST 14 IU/L (10-42) 07/20/16 15:30 ALT 12 IU/L (10-60) 07/20/16 15:30 Alkaline Phosphatase 67 IU/L (42-121) 07/20/16 15:30 Serum Total Protein 7.2 gm/dL (6.4-8.2) 07/20/16 15:30 Albumin 3.9 g/dl (3.2-5.5) 07/20/16 15:30 Globulin 3.3 gm/dL (2.3-3.5) 07/20/16 15:30 Albumin/Globulin Ratio 1.2 (1.1-1.9) 07/20/16 15:30 Urine Color Yellow (Yellow) 07/20/16 15:46 Urine Appearance Clear (Clear) 07/20/16 15:46 Urine pH 5.5 (4.5-7.8) 07/20/16 15:46 Ur Specific [place] 1.015 (1.005-1.030) 07/20/16 15:46 Urine Protein Negative mg/dL 07/20/16 15:46 Urine Glucose (UA) 100 mg/dL (Negative) H 07/20/16 15:46 Urine Ketones Negative mg/dL (NEGATIVE) 07/20/16 15:46 Urine Blood Negative (Negative) 07/20/16 15:46 Urine Nitrite Negative 07/20/16 15:46 Urine Bilirubin Negative (NEGATIVE) 07/20/16 15:46 Urine Urobilinogen 0.2 mg/dL (0.2-1.0) 07/20/16 15:46 Ur Leukocyte Esterase Negative (Negative) 07/20/16 15:46 Urine RBC 0 /hpf 07/20/16 15:46 Urine WBC 0 /hpf 07/20/16 15:46 Ur Epithelial Cells 0 /hpf 07/20/16 15:46 Urine Bacteria 0 07/20/16 15:46 Urine Opiates Screen Negative ng/mL (1999) 07/20/16 15:17 Urine Barbiturates Negative ng/mL (200) 07/20/16 15:17 Ur Phencyclidine Scrn Negative ng/mL (25) 07/20/16 15:17 U Amphetamin/Meth Scrn Negative ng/mL (1000) 07/20/16 15:17 U Benzodiazepines Scrn Negative ng/mL (200) 07/20/16 15:17 U Cocaine Metab Screen Negative ng/mL (300) 07/20/16 15:17 U Cannabinoids Screen Negative ng/mL (50) 07/20/16 15:17 - EKG/XRAY/CT XRAY: abdomen - Large intestine constipation. Departure - Departure Clinical Impression: Diabetes mellitus type 2, uncontrolled, without complications Constipation Qualifiers: Constipation type: slow transit constipation Qualifier Code: (K59.01) Slow transit constipation Time of Disposition: 17:18 Disposition: Discharge to Home or Self Care Condition: Good Departure Forms: ED Discharge - Pt. Copy, Patient Portal Self Enrollment Instructions: DI for Constipation, Type 2 Diabetes Diet: diabetic diet Activity: increase activity as tolerated Prescriptions: RX: Lactulose 20 gm PO GRACY-OTH-DAY #300 ml Home Medications: Ambulatory Orders RX: metFORMIN HCL [Glucophage] 500 mg PO BIDFD #60 tab 05/18/16 Polyethylene Glycol 3350 [Miralax] 17 gm PO QAM #30 pckt 06/17/16 Insulin Detemir [Levemir] 30 unit SUBCU BID 07/11/16 RX: Lactulose 20 gm PO GRACY-OTH-DAY #300 ml 07/20/16 Additional Instructions: Fleets enemas as needed at home.
--- NOTE | 2016-07-20 15:48 | RAD ---
EXAM DESCRIPTION: Abdomen Flat Upright CLINICAL HISTORY: constipation COMPARISON: 14 June 2016 TECHNIQUE: AP supine and upright views of the abdomen FINDINGS: The lung bases are clear. No evidence of free air is detected. A large amount stool is observed throughout the colon. Phleboliths are observed in the pelvis. No organomegaly is detected. Degenerative changes are observed in the lower lumbar spine. IMPRESSION: Large amount stool is observed throughout the colon consistent with a clinical diagnosis of constipation. Electronically signed by: Wilfrid Fox MD 07/20/2016 3:48 PM CDT
[2016-07-20 15:59] VITALS: TEMP 97.5
[2016-07-20] MEDS ORDERED: LACTULOSE SYRUP 20 GM/30 ML UD PO ONE (16:01)
[2016-07-20 17:14] VITALS: BP 119/79
[2016-07-20 17:40] VITALS: O2SAT 100
== END 2016-07-20 17:39 | disposition home or self-care (01) ==
LOC: ER 14:52
DX: K59.01 Slow transit constipation (principal); E11.65 Type 2 diabetes mellitus with hyperglycemia; Z79.899 Other long term (current) drug therapy; Z79.4 Long term (current) use of insulin
CPT/HCPCS: 36415; 74010; 80053; 80307; 81001; 85025; J1885; J7030

== ENCOUNTER 2016-07-21 20:09 | Emergency (ER) | payer MEDICAID, OTHER ==
--- NOTE | 2016-07-21 20:56 | ED.PDOC ---
History of Present Illness - General Chief Complaint: GI Problem Stated Complaint: constipation, "bugs on my skin" Time Seen by Provider: 07/21/16 20:54 Source: patient Exam Limitations: no limitations - History of Present Illness Initial Comments: Davis Marroquin 61 y/o male with history of DM non compliant with medication and "bugs on his skin" and chronic constipation stated that he is still havent vmove his bowel since his last visit here last night in which he was given fleets enema and had bowel movement after procedure came back again for same problem tonight.No nausea/vomiting.Was given prescription for his constipation but nver been to the pharmacyto get it. Timing/Duration: 24 hours Severity: moderate Improving Factors: nothing Worsening Factors: nothing Associated Symptoms: denies symptoms Allergies/Adverse Reactions: Allergies NO KNOWN ALLERGY Allergy (Verified 07/21/16 20:21) Home Medications: Ambulatory Orders metFORMIN HCL [Glucophage] 500 mg PO BIDFD #60 tab 05/18/16 Polyethylene Glycol 3350 [Miralax] 17 gm PO QAM #30 pckt 06/17/16 Insulin Detemir [Levemir] 30 unit SUBCU BID 07/11/16 Lactulose 20 gm PO GRACY-OTH-DAY #300 ml 07/20/16 Ivermectin 9 mg PO ONCE #1 tab 07/21/16 Review of Systems - Review of Systems Constitutional: States: no symptoms reported EENTM: States: no symptoms reported Respiratory: States: no symptoms reported Cardiology: States: no symptoms reported Gastrointestinal/Abdominal: States: see HPI Genitourinary: States: no symptoms reported Musculoskeletal: States: no symptoms reported Skin: States: no symptoms reported Neurological: States: no symptoms reported Endocrine: States: no symptoms reported Past Medical History (General) - Patient Medical History Hx Seizures: No Hx Stroke: No Hx Asthma: No Hx of COPD: No Hx Cardiac Disorders: No Hx Congestive Heart Failure: No Hx Pacemaker: No Hx Hypertension: No Hx Diabetes: Yes Hx Gastroesophageal Reflux: No Hx Renal Disease: No Hx Cancer: No Hx MRSA: No Hx Other PMH: Yes - chronic constipation,complaints of bug in his system Surgical History: appendectomy, other - Vaccination History Hx Tetanus, Diphtheria Vaccination: No Hx Influenza Vaccination: Yes Hx Pneumococcal Vaccination: No - Social History Hx Tobacco Use: Yes Hx Chewing Tobacco Use: No Hx Alcohol Use: No Hx Substance Use: Yes - Meth 4 to 5 days ago Hx Substance Use Treatment: No Hx Depression: No Hx Physical Abuse: No Hx Emotional Abuse: No Hx Suspected Abuse: No - Activities of Daily Living Patient Lives Alone: Yes Grooming Ability: Independent Eating (Feeding) Ability: Independent Toileting Ability: Independent Family Medical History - Family History Mother Family History: Unknown Living Status: Hx Family Asthma: No Hx Family Congestive Heart Failure: No Hx Family Hypertension: No Hx Family Stroke: No Hx Cardiac Disease: No Hx Family Diabetes: Yes - mother Hx Family Cancer: No Hx Family;Other: patient uncoperative Physical Exam - Physical Exam General Appearance: Alert, No apparent distress Eye Exam: bilateral normal Ears, Nose, Throat: hearing grossly normal, normal ENT inspection, normal pharynx Neck: non-tender, full range of motion, supple, normal inspection Respiratory: chest non-tender, lungs clear, normal breath sounds, no respiratory distress Cardiovascular/Chest: normal peripheral pulses, regular rate, rhythm, no edema, no gallop, no JVD, no murmur Peripheral Pulses: radial,right: 2+, radial,left: 2+ Gastrointestinal/Abdominal: normal bowel sounds, non tender, soft Rectal Exam: normal rectal tone, other - no stool rectal vault Extremity: normal range of motion, non-tender, normal inspection, no pedal edema , no calf tenderness Neurologic: no motor/sensory deficits, alert, oriented x 3 Skin Exam: normal color, warm/dry Lymphatic: no adenopathy Progress - Results/Orders Results/Orders: 07/21/16 21:05 COMPLETE METABOLIC PROFILE Stat TSH [THYROID STIMULATING HORMONE] Stat 07/21/16 22:02 URINE DRUG SCREEN, 7 ASSAY Stat 07/21/16 22:22 URINALYSIS Stat Laboratory Results WBC 7.8 K/mm3 (4.8-10.8) 07/21/16 21:05 RBC 4.26 M/mm3 (4.70-6.10) L 07/21/16 21:05 Hgb 11.8 gm/dL (14.0-18.0) L 07/21/16 21:05 Hct 36.2 % (42.0-52.0) L 07/21/16 21:05 MCV 84.9 fl (80.0-94.0) 07/21/16 21:05 MCH 27.6 pg (27.0-31.0) 07/21/16 21:05 MCHC 32.7 g/dL (33.0-37.0) L 07/21/16 21:05 RDW 14.5 % (11.5-14.5) 07/21/16 21:05 Plt Count 324 K/mm3 (130-400) 07/21/16 21:05 MPV 7.6 fl (7.40-10.4) 07/21/16 21:05 Absolute Neuts (auto) 6.00 K/uL (1.8-6.8) 07/21/16 21:05 Absolute Lymphs (auto) 1.20 K/uL (1.0-3.4) 07/21/16 21:05 Absolute Monos (auto) 0.50 K/uL (0.2-0.8) 07/21/16 21:05 Absolute Eos (auto) 0.10 K/uL (0.0-0.4) 07/21/16 21:05 Absolute Basos (auto) 0.00 K/uL (0.0-0.1) 07/21/16 21:05 Neutrophils % 76.3 % (42.0-78.0) 07/21/16 21:05 Lymphocytes % 15.1 % (20.0-50.0) L 07/21/16 21:05 Monocytes % 6.8 % (2.0-9.0) 07/21/16 21:05 Eosinophils % 1.4 % (1.0-5.0) 07/21/16 21:05 Basophils % 0.4 % (0.0-2.0) 07/21/16 21:05 Sodium 133 mmol/L (135-145) L 07/21/16 21:05 Potassium 4.2 mmol/L (3.6-5.0) 07/21/16 21:05 Chloride 103 mmol/L (101-111) 07/21/16 21:05 Carbon Dioxide 25 mmol/L (21-31) 07/21/16 21:05 Anion Gap 9.2 (12-18) L 07/21/16 21:05 BUN 28 mg/dL (7-18) H D 07/21/16 21:05 Creatinine 0.82 mg/dL (0.6-1.3) 04/11/17 21:05 BUN/Creatinine Ratio 34.1 (10-20) H 07/21/16 21:05 Random Glucose 335 mg/dL (70-105) H D 07/21/16 21:05 Serum Osmolality 285.0 mOsm/L (275-295) 07/21/16 21:05 Calcium 8.9 mg/dL (8.4-10.2) 07/21/16 21:05 Total Bilirubin 0.4 mg/dL (0.2-1.0) 07/21/16 21:05 AST 13 IU/L (10-42) 07/21/16 21:05 ALT 10 IU/L (10-60) 07/21/16 21:05 Alkaline Phosphatase 65 IU/L (42-121) 07/21/16 21:05 Serum Total Protein 6.1 gm/dL (6.4-8.2) L 07/21/16 21:05 Albumin 3.3 g/dl (3.2-5.5) 07/21/16 21:05 Globulin 2.8 gm/dL (2.3-3.5) 07/21/16 21:05 Albumin/Globulin Ratio 1.2 (1.1-1.9) 07/21/16 21:05 - EKG/XRAY/CT XRAY: abdomen - large colonic stool no obstruction Departure - Departure Clinical Impression: Constipation by delayed colonic transit, Diabetes mellitus type 2, uncontrolled , without complications, Non compliance with medical treatment Time of Disposition: 22:36 Disposition: Discharge to Home or Self Care Condition: Fair Departure Forms: ED Discharge - Pt. Copy, Patient Portal Self Enrollment Instructions: DI for Constipation, Increased Dietary Fiber May Improve Constipation Conditions With Pelvic Lee Prescriptions: Ivermectin 9 mg PO ONCE #1 tab Home Medications: Ambulatory Orders metFORMIN HCL [Glucophage] 500 mg PO BIDFD #60 tab 05/18/16 Polyethylene Glycol 3350 [Miralax] 17 gm PO QAM #30 pckt 06/17/16 Insulin Detemir [Levemir] 30 unit SUBCU BID 07/11/16 Lactulose 20 gm PO GRACY-OTH-DAY #300 ml 07/20/16 Ivermectin 9 mg PO ONCE #1 tab 07/21/16 Additional Instructions: NEED TO FOLLOW UP WITH PRIMARY MD
--- NOTE | 2016-07-21 21:33 | RAD ---
Procedure: XR ABDOMEN 2 VIEWS SUPINE ERECT Exam Date: 07/21/2016 Ordering Provider: Harry Prado Clinical Indication: constipated Comparison: 07/20/2016 Findings: There is no small or large bowel distention. Large colonic stool burden. There are no air-fluid levels. There is no pneumoperitoneum. There are no suspicious calcifications. Pelvic phleboliths. There is no acute skeletal abnormality. Impression: 1. No acute radiographic abnormalities in the abdomen or pelvis. 2. Large colonic stool burden. Electronically signed by: Harlan Rodriguez MD 07/21/2016 9:33 PM CDT
[2016-07-21] MEDS ORDERED: BISACODYL SUPPOSITORY 10 MG PR ONE (21:47)
[2016-07-21] MEDS ORDERED: BISACODYL TAB 5 MG TAB PO ONE (21:48)
[2016-07-21] MEDS ORDERED: PEG-ELECTROLYTE 4,000 ML BTTL PO SCH (22:00)
[2016-07-21] MEDS ORDERED: LACTULOSE SYRUP 20 GM/30 ML UD PO ONE (22:14)
[2016-07-21] MEDS ORDERED: INSULIN, REG.(HUMAN) 100 U/ML VIAL SUBCU ONE (22:43)
[2016-07-21 22:56] VITALS: BP 159/90; TEMP 97.7; O2SAT 97
== END 2016-07-21 23:25 | disposition home or self-care (01) ==
LOC: ER 20:09
DX: K59.01 Slow transit constipation (principal); E11.65 Type 2 diabetes mellitus with hyperglycemia; Z91.14 Patient's other noncompliance with medication regimen; Z79.4 Long term (current) use of insulin; Z79.899 Other long term (current) drug therapy; Z87.891 Personal history of nicotine dependence

== ENCOUNTER 2016-08-01 16:53 | Inpatient (IN) | payer MEDICAID, OTHER ==
--- NOTE | 2016-08-01 17:27 | ED.PDOC ---
History of Present Illness - General Chief Complaint: Behavioral / Psych Stated Complaint: have bugs all over Time Seen by Provider: 08/01/16 16:54 Source: patient, RN notes reviewed, Vital Signs reviewed Exam Limitations: no limitations - History of Present Illness Initial Comments: Patient comes in with complaints of bug bites all over. Reports they are even on the bottom of his feet making it hard for him to walk. + itching and not healing well. Timing/Duration: constant - Symptoms for months., getting worse Severity: moderate Improving Factors: nothing Worsening Factors: nothing Associated Symptoms: rash Allergies/Adverse Reactions: Allergies NO KNOWN ALLERGY Allergy (Verified 07/21/16 20:21) Home Medications: Ambulatory Orders Insulin Detemir [Levemir] 30 unit SUBCU BID 07/11/16 Review of Systems - Review of Systems Constitutional: States: no symptoms reported EENTM: States: no symptoms reported Respiratory: States: no symptoms reported Cardiology: States: no symptoms reported Musculoskeletal: States: no symptoms reported Skin: States: see HPI, lesions Neurological: States: no symptoms reported Past Medical History (General) - Patient Medical History Hx Seizures: No Hx Stroke: No Hx Asthma: No Hx of COPD: No Hx Cardiac Disorders: No Hx Congestive Heart Failure: No Hx Pacemaker: No Hx Hypertension: No Hx Diabetes: Yes Hx Gastroesophageal Reflux: No Hx Renal Disease: No Hx Cancer: No Hx MRSA: No - Vaccination History Hx Tetanus, Diphtheria Vaccination: No Hx Influenza Vaccination: Yes Hx Pneumococcal Vaccination: No - Social History Hx Tobacco Use: No Hx Chewing Tobacco Use: Yes Hx Alcohol Use: No Hx Substance Use: Yes - Meth 4 to 5 days ago Hx Substance Use Treatment: No Hx Depression: No Hx Physical Abuse: No Hx Emotional Abuse: No Hx Suspected Abuse: No Family Medical History - Family History Mother Family History: Unknown Living Status: Hx Family Asthma: No Hx Family Congestive Heart Failure: No Hx Family Hypertension: No Hx Family Stroke: No Hx Cardiac Disease: No Hx Family Diabetes: Yes - mother Hx Family Cancer: No Hx Family;Other: patient uncoperative Physical Exam - Physical Exam General Appearance: Agitated, Anxious, Unkempt Respiratory: no respiratory distress Extremity: normal range of motion, non-tender, no pedal edema Neurologic: no motor/sensory deficits, alert, normal mood/affect, oriented x 3 Skin Exam: other - Multiple lesions in varous stages of healing all over. + excorriations. L foot - open sore on big toe with significant surrounding erythema, warmth and thenderness. Another open lesion on L heel with surrounding erythema, swelling, tenderness and warmth. L lower leg - multiple scabbed wounds and petechia/purpura. Comments: Vital Signs - 24 hr 08/01/16 17:05 Temperature 95.6 F L Pulse Rate [ 78 Left Brachial] Respiratory 20 Rate Blood Pressure 142/95 [Left Arm] O2 Sat by Pulse 98 Oximetry Progress - Progress Progress: 08/01/16 18:47 Patient is uncontrolled diabetic with L foot cellulitis. Will admit for IV antibiotics. Discussed with Hospitalist. - Results/Orders Results/Orders: Laboratory Tests 08/01/16 08/01/16 17:35 17:35 WBC 7.1 RBC 4.49 L Hgb 12.5 L Hct 38.3 L MCV 85.3 MCH 27.8 MCHC 32.6 L RDW 13.9 Plt Count 370 MPV 7.6 Absolute Neuts (auto) 5.30 Absolute Lymphs (auto) 1.30 Absolute Monos (auto) 0.40 Absolute Eos (auto) 0.10 Absolute Basos (auto) 0.00 Neutrophils % 73.6 Lymphocytes % 18.2 L Monocytes % 6.2 Eosinophils % 1.4 Basophils % 0.6 Sodium 136 Potassium 4.1 Chloride 101 Carbon Dioxide 27 Anion Gap 12.1 BUN 27 H Creatinine 0.95 BUN/Creatinine Ratio 28.4 H Random Glucose 474 H* Serum Osmolality 298.5 H Calcium 9.2 Total Bilirubin 0.8 AST 13 ALT 13 Alkaline Phosphatase 83 Serum Total Protein 7.3 Albumin 3.9 Globulin 3.4 Albumin/Globulin Ratio 1.1 Departure - Departure Clinical Impression: Uncontrolled blood glucose, Cellulitis of foot, left Diabetes Qualifiers: Diabetes mellitus type: type 2 Diabetes mellitus complication status: with skin complications Diabetes mellitus complication detail: with other skin complication Qualified Code(s): E11.628 - Type 2 diabetes mellitus with other skin complications Time of Disposition: 18:50 Disposition: Admit Patient Condition: Poor Departure Forms: ED Discharge - Pt. Copy, Patient Portal Self Enrollment Referrals: Eloise Durand NP [Primary Care Provider] - 1-2 Weeks Home Medications: Ambulatory Orders Insulin Detemir [Levemir] 30 unit SUBCU BID 07/11/16 Decision To Admit - Decistion To Admit Decision to Admit Reason: Admit from ER - For diabetes and cellulitis
[2016-08-01] MEDS ORDERED: INSULIN, REG.(HUMAN) 100 U/ML VIAL SUBCU ONE (18:14)
[2016-08-01] MEDS ORDERED: SODIUM CHLORIDE 0.9% 1000ML 1,000 ML IVS ONE (18:14)
[2016-08-01] MEDS ORDERED: levoFLOXacin 500MG IV 500 MG in PREMIX BAG 1 BAG IVPB ONE (18:16)
[2016-08-01] MEDS ORDERED: levoFLOXacin 500MG IV 100 ML IVPB ONE (18:17)
--- NOTE | 2016-08-01 19:25 | HP ---
SUPERVISING PHYSICIAN: Gerardo Rodriguez M.D. CHIEF COMPLAINT: Feels like he has bugs all over. HISTORY OF PRESENT ILLNESS: Mr. Marroquin is a 61 year-old male patient who lives in [place], who presented to the Emergency Department today complaining that he had bug bites all over his body, especially on the bottom of his feet. He does have a significant history of being diabetic and being poorly compliant at times as well as a longstanding history of methamphetamine abuse on a chronic basis with the most recent use being within the last 3 to 5 days. Today, he notes that he has bug bites more so on the bottom of his feet that cause itching and pain when he walks. Initial workup in the Emergency Department showed laboratory studies with a white count of 7.1 with hemoglobin 12.5, hematocrit 38.3, platelet count 370. Chemistries were significant for glucose of 474 with BUN 27, creatinine 0.95. All other electrolytes and liver function showed to be within normal limits. Urinalysis showed greater than 1, 000 glucose with trace of blood, otherwise was within normal limits. He did have a toxicology screen on urine that showed positive methamphetamines, but was negative on ketones. Blood cultures were drawn in the Emergency Department and he was started on antibiotics initially to include Levaquin for multiple sores to both lower extremities and a large area on his left great toe with cellulitis. He was admitted for continuation of treatment and further evaluation. He was admitted in stable condition to the Medical/Surgical floor. PAST MEDICAL HISTORY: 1. Diabetes mellitus for 21 years. Currently he is on insulin therapy but is very noncompliant with diet, exercise and insulin administration. 2. History of psoriasis. PAST SURGICAL HISTORY: 1. Appendectomy. 2. Left knee surgery. 3. Hernia repair. CURRENT MEDICATIONS: 1. Insulin Detemir 30 units subcue twice daily. ALLERGIES: NO KNOWN DRUG ALLERGIES. FAMILY HISTORY: Positive for diabetes and cancer. 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 He does have a significant history of smoking methamphetamines on a daily basis but notes he does not use tobacco but uses smokeless tobacco. Last reported use of methamphetamines was within 3 to 5 days. He is single and lives in [place]. REVIEW OF SYSTEMS: CONSTITUTIONAL: The patient notes he has had significant weight loss since his previous admission to the hospital on 06/14/16 at which time he weighed 58.9 kg , but actually on admission today he weighs 61.6 kg. HEENT: He denies any nasal congestion, sinus pain, headaches or vision changes. RESPIRATORY: Has no significant shortness of breath or any cough. CARDIOVASCULAR: Denies any palpitations, chest pains or syncopal episodes. GASTROINTESTINAL: Denies any constipation, diarrhea. GENITOURINARY: Denies any urinary symptoms, although he reports that he does have a large painful area on his right inguinal area that has been present for several months. NEUROLOGIC: He has no history of seizures or focal weakness. PHYSICAL EXAMINATION: VITAL SIGNS: On admission, temperature 95.6, pulse 78, blood pressure 142/95, respirations 20, satting 98% on room air. GENERAL: The patient appears to be in no distress but is quite hyperactive, but very cooperative. HEENT: Oropharynx is pink with dry mucosal membranes. Very poor dentition. There is noted to his face several erythematous red areas to his nose and forehead that are scabbed over. NECK: Supple with full range of motion, non-tender. There is no jugular venous distention. CHEST: Lung sounds are clear bilaterally, just slightly diminished towards the bases posteriorly. There is no rhonchi, wheezing or rales. CARDIOVASCULAR: Regular rate and rhythm without appreciable murmurs, gallops, or rubs. ABDOMEN: Soft, non-tender. Positive bowel sounds. There is an area of tenderness noted to the right inguinal area with a palpable swelling that is reducible with minimum effort. EXTREMITIES: Muscle wasting to both upper and lower extremities, but no cyanosis, clubbing or edema. Numerous sore to extremities as described below. INTEGUMENT: Noted for multiple lesions in all stages of healing all over all extremities and face with a significant finding to the left foot and great toe with a sore that is very erythematous, warm and tender. There is a small open lesion to the left heel that has erythema noted and some swelling and tenderness as well. His left lower leg has multiple scabbed healing wounds and obvious scratches in various stages of healing. NEUROLOGIC: He is alert and oriented times three. Facial features are symmetric. Extraocular movements are within normal limits. There is no nystagmus. There is no notable focal motor weaknesses. LABORATORY: CBC on admission shows a normal white count at 7.1, hemoglobin 12.5 , hematocrit 38.3, platelet count 370,000. Differential shows to be without a left shift. Chemistries show normal electrolytes with potassium 4.1, BUN 27, creatinine 0.95, glucose 474 with serum osmolality 298. Liver functions all show to be within normal limits. Calcium 9.2. Urinalysis showed greater than 1 ,000 glucose, negative ketones, trace amount of blood and otherwise all were within normal limits. Toxicology screen on urine showed positive for methamphetamines and serum ketones was negative. MICROBIOLOGY: Two blood cultures pending. ASSESSMENT: 1. Type 2 diabetes mellitus poorly controlled with diabetic ulcers to left great toe and left heel, complications secondary to persistent hyperosmolar hyperglycemic state and poor profusion state.. 2. History of chronic methamphetamine abuse with tactile hallucinations, sensation of bugs underneath the skin resulting in picking and multiple areas of excoriation from scratching with early signs of cellulitis complicated by poorly controlled diabetes. 3. Hyperosmolar nonketotic hyperglycemic state primarily due to lack of administration of insulin and poor oral intake. 4. Moderate dehydration secondary to hyperosmolar state and chronic amphetamine abuse. 5. History of hypertension. 6. Right inguinal hernia, non-incarcerated. 7. Poor nutritional intake secondary to methamphetamine abuse resulting in less than optimal caloric intake and weight loss. 8. Chronic abuse of smokeless tobacco. PLAN: The patient will be admitted to the hospital with concerns of cellulitis to the left toe. He will be started on antibiotics. Initially he was started on antibiotics to include Levaquin in the Emergency Department. This will be continued as well as the addition of vancomycin for concern for MRSA and Flagyl will be added in addition to the regimen for concerns of anaerobic infection from poor hygiene and diabetic ulcers to the left foot. He will be started on his Levemir and insulin sliding scale per protocol. He will be provided IV fluids for rehydration initially to include a multivitamin infusion with thiamine every day in addition to normal saline with 20 of potassium to run at 250 mL an hour for at least 2 to 3 liters to be reevaluated in the morning with repeat chemistries to include a CMP. I will give him Vistaril tonight to assist with the pruritus and some of the agitation. Anticipate length of stay to be 2 to 3 days with antibiotic coverage to continue with vancomycin per Pharmacy protocol and await culture results of multiple areas of infection noted to the the lower extremities, mainly to the left great toe. Until then, will continue to monitor the patient closely and treat appropriately. Once the patient is clinically well enough to be stable to discharge, he will need close clinical followup in the [facility] who is his current primary care provider. Until discharge, will follow the patient closely and treat appropriately. #[id number] [facility]
[2016-08-01] MEDS ORDERED: INSULIN DETEMIR 100 UNITS/ML PEN SUBCU ONE (21:12)
[2016-08-01] MEDS ORDERED: ACETAMINOPHEN 325 MG TAB PO PRN (21:12)
[2016-08-01] MEDS ORDERED: GLUCAGON INJ 1 MG VIAL SUBCU PRN (21:12)
[2016-08-01] MEDS ORDERED: DEXTROSE 50% 25 GM/50 ML SYG IV PRN (21:12)
[2016-08-01] MEDS: KCL 20MEQ/0.45% NS 1,000 ML IVS PRN (22:04)
[2016-08-01] MEDS: SODIUM CHLORIDE 0.9% (FLUSH) 10 ML SYG IV PRN (22:04)
[2016-08-01] MEDS: IV SET AND CAP CHANGE INJ INJ SCH (22:05)
[2016-08-01] MEDS ORDERED: VANCOMYCIN HCL INJ 1,000 MG in SODIUM CHLORIDE 0.9% 250ML 250 ML IVPB ONE (22:19)
[2016-08-01] MEDS ORDERED: hydrOXYzine HCl 50 MG/ML VIAL IM ONE (22:25)
[2016-08-01] MEDS ORDERED: metroNIDAZOLE IV PREMIX 500MG 100 ML IVPB ONE (22:53)
[2016-08-01] MEDS ORDERED: SODIUM CHLORIDE 0.9% 250ML 250 ML ONE (22:53)
[2016-08-01] MEDS ORDERED: THIAMINE HCL INJ 100 MG/ML VIAL ONE (22:53)
[2016-08-01] MEDS ORDERED: SODIUM CHLORIDE 0.9% 1000ML 1,000 ML ONE (22:53)
[2016-08-01] MEDS ORDERED: MULTIPLE VITAMIN 10 ML VIAL ONE (22:54)
[2016-08-01] MEDS ORDERED: VANCOMYCIN HCL INJ 1,000 MG VIAL IVPB ONE (22:54)
[2016-08-01] MEDS ORDERED: hydrOXYzine PAMOATE 25 MG CAP PO ONE (23:00)
[2016-08-01] MEDS ORDERED: hydrOXYzine PAMOATE 25 MG CAP ONE (23:02)
[2016-08-01] MEDS: metroNIDAZOLE IV PREMIX 500MG 500 MG in PREMIX BAG 1 BAG IVPB SCH (23:11)
[2016-08-01] MEDS ORDERED: ENOXAPARIN SODIUM 40 MG/0.4 ML SYG SUBCU SCH (23:45)
--- NOTE | 2016-08-01 23:56 | PCM.CORE ---
Physician DVT/VTE - Nurse DVT Assessment & Total Each Risk Factor Represents 2 Points: Age 60-74 Each Risk Factor Represents 1 Point: Hx of smoking past year DVT Assessment Score: 3 - 5 or more Very High Risk Treatments: Early Ambulation *, Sequential Compression Device Pharmacological: Enoxaparin 40mg SQ Daily
[2016-08-02] MEDS: SODIUM CHLORIDE 0.9% (FLUSH) 10 ML SYG IV PRN (00:14)
[2016-08-02] MEDS ORDERED: MAGNESIUM HYDROXIDE 30 ML UD ONE ×2 (01:10→20:07)
[2016-08-02] MEDS ORDERED: MAGNESIUM HYDROXIDE 30 ML UD PO ONE ×2 (01:22→19:30)
[2016-08-02] MEDS: MULTIPLE VITAMIN INJ 10 ML, THIAMINE HCL INJ 100 MG in SODIUM CHLORIDE 0.9% 1000ML 1,00... IVS SCH ×2 (03:00→22:53)
[2016-08-02] MEDS: KCL 20MEQ/0.45% NS 1,000 ML IVS PRN ×3 (03:22→17:09)
[2016-08-02] MEDS ORDERED: metroNIDAZOLE IV PREMIX 500MG 100 ML IVPB ONE ×3 (06:18→20:06)
[2016-08-02] MEDS: metroNIDAZOLE IV PREMIX 500MG 500 MG in PREMIX BAG 1 BAG IVPB SCH ×3 (06:29→22:10)
[2016-08-02] MEDS: INSULIN LISPRO 100 UNITS/ML PEN SUBCU SCH ×5 (07:40→21:20)
[2016-08-02] MEDS ORDERED: VANCOMYCIN PER PHARMACY IVPB SCH (09:00)
[2016-08-02] MEDS ORDERED: SODIUM CHLORIDE 0.9% 1000ML 1,000 ML ONE (09:14)
[2016-08-02] MEDS ORDERED: THIAMINE HCL INJ 100 MG/ML VIAL ONE (09:14)
[2016-08-02] MEDS ORDERED: MULTIPLE VITAMIN 10 ML VIAL ONE (09:14)
[2016-08-02] MEDS ORDERED: SODIUM CHL 0.9% 250ML (AVIVA) 250 ML IVPB ONE ×2 (11:24→20:05)
[2016-08-02] MEDS ORDERED: VANCOMYCIN HCL INJ 1,000 MG VIAL IVPB ONE ×2 (11:25→20:06)
[2016-08-02] MEDS: SODIUM CHL 0.9% IVPB SCH ×2 (11:41→23:24)
[2016-08-02] MEDS: VANCOMYCIN HCL IVPB SCH ×2 (11:41→23:24)
[2016-08-02] MEDS ORDERED: ALPRAZolam 0.25 MG TAB PO ONE (11:53)
[2016-08-02] MEDS: INSULIN DETEMIR 100 UNITS/ML PEN SUBCU SCH ×2 (11:56→21:20)
[2016-08-02] MEDS ORDERED: CHLORHEXIDINE GLUCONATE 4 % 15 ML UD TOP ONE ×2 (18:47→20:05)
--- NOTE | 2016-08-02 20:03 | PN ---
DATE: 08/02/16 SUPERVISING PHYSICIAN: Gerardo Rodriguez M.D. SUBJECTIVE: The patient has been quite anxious through the night and complains of not being able to sleep, and continues to have itching despite being given Vistaril. He remains afebrile. OBJECTIVE: VITAL SIGNS: T max 97.9, pulse 96, blood pressure 144/78, respirations 20, O2 sat 100% on room air. I's ans O's show a positive balance of 1240 with 2840 in, 1600 out. Weight is 66.6 kg. GENERAL: The patient continues to be somewhat anxious but alert. CHEST: Clear to auscultation bilaterally. HEART: Regular rate and rhythm. ABDOMEN: Soft, non-tender. Positive bowel sounds. EXTREMITIES: Multiple wounds at various stages of healing with scabs, notable is the right great toe that is showing some erythema but no drainage. No areas of fluctuation or consolidation. There is a small area on the inside of the medial aspect of the heel just above the plantar surface about the size of a dime that has an eschar on it, but no obvious drainage. Other scabs noted on both shins and multiple areas to the back of the leg. NEUROLOGIC: He is alert and oriented times three. LABORATORY: White count 8.3, hemoglobin 11.4, hematocrit 34.1, platelet count 344,000. Differential shows no left shift. Chemistries show normal electrolytes with potassium 4.2, glucose has been 63 to 294, BUN 23, creatinine 0.74. Liver functions continue to show to be within normal limits. RADIOLOGY: Bilateral Doppler ultrasounds of the lower extremities to rule out DVT are pending. ASSESSMENT: 1. Type 2 diabetes mellitus poorly controlled with diabetic ulcers to the left heel, complications to persistent hyperosmolar hyperglycemic state. 2. Cellulitis to the left great toe secondary to poor perfusion from complications from poorly controlled type 2 diabetes mellitus. 3. History of chronic methamphetamine abuse with tactile hallucinations, sensation of bugs reported on his skin resulting in picking in multiple areas with excoriation and scratching, again with early signs and symptoms complicated by both poorly controlled diabetes and poor venous circulation to the lower extremities. 4. Hyperosmolar nonketotic hyperglycemic state primarily due to lack of administration of insulin, poor oral intake and dehydration. 5. Moderate dehydration secondary to hyperosmolar state and chronic amphetamine abuse. 6. History of hypertension. 7. Right inguinal hernia, not incarcerated. 8. Poor nutritional intake secondary to methamphetamine abuse resulting in less than optimal caloric intake and weight loss. 9. Chronic abuse of smokeless tobacco. PLAN: Will continue with antibiotic therapy today with Flagyl, Levaquin and vancomycin per Pharmacy protocol. Will continue to monitor the wound on the left great toe and provide wound care with diluted Hibiclens. There are no areas of open sores and will encourage the patient to stop scratching. It does appear that the wound is healing somewhat and is again showing no obvious drainage. Will continue IV therapy as the patient is showing good response to hydration therapy and on multivitamin infusion with thiamine daily. Will continue to monitor the patient closely. Anticipate possible discharge in the next 1 to 2 days with close clinical followup needed at time of discharge, and continuation of antibiotic therapy to be determined at that time. Until then, will follow the patient closely and treat appropriately. #[id number] [facility]
[2016-08-02] MEDS: TEMAZEPAM 15 MG CAP PO PRN (21:24)
[2016-08-02] MEDS: ENOXAPARIN SODIUM 40 MG/0.4 ML SYG SUBCU SCH (21:24)
[2016-08-02] MEDS: HYDROcodone 5MG/APAP 325MG 1 EA TAB PO PRN (22:09)
[2016-08-03] MEDS: KCL 20MEQ/0.45% NS 1,000 ML IVS PRN (04:56)
[2016-08-03] MEDS ORDERED: metroNIDAZOLE IV PREMIX 500MG 100 ML IVPB ONE ×3 (06:02→19:15)
[2016-08-03] MEDS: metroNIDAZOLE IV PREMIX 500MG 500 MG in PREMIX BAG 1 BAG IVPB SCH ×3 (06:06→23:02)
[2016-08-03] MEDS: INSULIN DETEMIR 100 UNITS/ML PEN SUBCU SCH ×3 (07:49→21:14)
[2016-08-03] MEDS: INSULIN LISPRO 100 UNITS/ML PEN SUBCU SCH ×4 (07:50→21:13)
[2016-08-03] MEDS ORDERED: CHLORHEXIDINE GLUCONATE 4 % 15 ML UD TOP ONE (09:00)
[2016-08-03] MEDS: CHLORHEXIDINE GLUCONATE 4 % 15 ML UD TOP SCH ×2 (09:05→21:15)
[2016-08-03] MEDS: HYDROcodone 5MG/APAP 325MG 1 EA TAB PO PRN ×3 (11:11→23:23)
[2016-08-03] MEDS ORDERED: ALPRAZolam 0.25 MG TAB ONE (11:27)
[2016-08-03] MEDS: ALPRAZolam 0.25 MG TAB PO PRN (11:29)
[2016-08-03] MEDS ORDERED: hydrOXYzine PAMOATE 25 MG CAP PO ONE (12:31)
[2016-08-03] MEDS ORDERED: PERMETHRIN 5% 60 GM TUBE TOP ONE (12:47)
[2016-08-03] MEDS ORDERED: hydrOXYzine PAMOATE 25 MG CAP ONE (13:34)
[2016-08-03] MEDS ORDERED: SODIUM CHL 0.9% 250ML (AVIVA) 250 ML IVPB ONE ×2 (13:34→23:47)
[2016-08-03] MEDS ORDERED: VANCOMYCIN HCL INJ 1,000 MG VIAL IVPB ONE ×2 (13:35→23:47)
[2016-08-03] MEDS: SODIUM CHL 0.9% IVPB SCH (14:23)
[2016-08-03] MEDS: VANCOMYCIN HCL IVPB SCH (14:23)
--- NOTE | 2016-08-03 16:39 | US ---
EXAM DESCRIPTION: Venous,Lower Extremity LT (accession [id number]), Venous,Lower Extremity RT (accession [id number]) CLINICAL HISTORY: cellulitis COMPARISON: None Available. TECHNIQUE: Bilateral lower extremity venous duplex FINDINGS: There is no DVT identified. There is normal color flow observed with good flow augmentation. All deep veins compress normally. IMPRESSION: Negative for DVT Electronically signed by: Joel Almeida MD 08/03/2016 4:39 PM CDT
--- NOTE | 2016-08-03 16:40 | US ---
EXAM DESCRIPTION: Venous,Lower Extremity LT (accession [id number]), Venous,Lower Extremity RT (accession [id number]) CLINICAL HISTORY: cellulitis COMPARISON: None Available. TECHNIQUE: Bilateral lower extremity venous duplex FINDINGS: There is no DVT identified. There is normal color flow observed with good flow augmentation. All deep veins compress normally. IMPRESSION: Negative for DVT Electronically signed by: Joel Almeida MD 08/03/2016 4:39 PM CDT
[2016-08-03] MEDS ORDERED: SODIUM CHLORIDE 0.9% 1000ML 1,000 ML ONE (17:57)
[2016-08-03] MEDS ORDERED: MULTIPLE VITAMIN 10 ML VIAL ONE (17:58)
[2016-08-03] MEDS ORDERED: THIAMINE HCL INJ 100 MG/ML VIAL ONE (17:58)
[2016-08-03] MEDS: MULTIPLE VITAMIN INJ 10 ML, THIAMINE HCL INJ 100 MG in SODIUM CHLORIDE 0.9% 1000ML 1,00... IVS SCH (18:07)
--- NOTE | 2016-08-03 18:35 | PN ---
DATE: 08/03/16 SUPERVISING PHYSICIAN: Jared Arriaza M.D. SUBJECTIVE: The patient continues to feel like he has bugs more so today on his face. I think part of this is related to some of the underlying previous methamphetamine complicated by [place] administration for pain. Again discussed with the patient that there were no obvious findings that he had any kind of bugs, such as scabies, but I discussed that we would certainly provide him with treatment for scabies to ensure that this was indeed not being missed. He is taking Vistaril p.r.n. which seems to help somewhat. He remains afebrile. He has not had any nausea, vomiting or diarrhea. He does report that he has had some issues with constipation but has no abdominal pain. OBJECTIVE: VITAL SIGNS: temperature 98.6, pulse 74, blood pressure 154/87, respirations 18, O2 sat 98% on room air. I's and O's show a positive balance of 4673 with 8873 in, 4200 out. Will plan to saline lock him today as he is having adequate fluid intake. Weight is 66.6 kg. CHEST: Lungs remain clear to auscultation bilaterally. HEART: Regular rate and rhythm. ABDOMEN: Soft, non- tender. Positive bowel sounds. EXTREMITIES: No clubbing, cyanosis or edema. Again, there are noted various stages of healing of wounds with scabs and abrasion to all extremities, especially notable in the lower extremities with the left great toe showing continued erythema but no drainage. It does appear that it is improving today compared to admission. Areas of his heel also look like they are healing. There is no obvious drainage. NEUROLOGIC: He is alert and oriented times three. LABORATORY: CBC was not repeated today, but his chemistries today show sodium 133, potassium 4.6, BUN 18, creatinine 0.63, glucoses have been 178 to 268, calcium 8.7. MICROBIOLOGY: Wound cultures of the left great toe preliminary shows gram positive cocci which is catalase positive. MRSA surveillance culture shows no growth at 24 hours. Blood cultures remain negative at 24 hours. ASSESSMENT: 1. Type 2 diabetes mellitus poorly controlled with diabetic ulcers to the left heel complications with persistent hyperosmolar hyperglycemic state. 2. Cellulitis of the left great toe secondary to poor perfusion from complications of poorly controlled type 2 diabetes mellitus. 3. Sever pruritus secondary to his previous methamphetamine abuse and complicated by pain management with [place] without any signs of allergies or obvious infestations from bugs such as scabies. 4. History of chronic methamphetamine abuse with tactile hallucinations, sensations of bugs reported on the skin with picking the areas with multiple areas of excoriation and scratching again complicated by underlying poorly controlled diabetes and poor venous circulation to the lower extremities with no obvious signs of infestation from insects. 5. Hyperosmolar nonketotic hyperglycemic state on admission due to the lack of administration of insulin, poor oral intake, dehydration and poor management of his diabetes showing improvement after starting on sliding scale and IV fluids. 6. Moderate dehydration secondary to hyperosmolar state and chronic amphetamine abuse showing improvement after aggressive IV therapy. 7. History of hypertension. 8. Right inguinal hernia not incarcerated. 9. Poor nutritional intake secondary to methamphetamine abuse resulting in less than optimal caloric intake and weight loss. 10. Chronic abuse of smokeless tobacco. PLAN: Will continue with his therapy today with his parenteral antibiotics again with Flagyl, Levaquin and vancomycin, and monitor closely. Will continue with diluted Hibiclens cleansing twice daily of the areas on his legs. Again, he is encouraged to stop scratching. Will go ahead and utilize Permethrin cream in efforts to ensure that he does indeed not have an infestation from scabies. Again, this does not appear clinically to be the case, but given the patient's previous living conditions, it certainly will not be detrimental to the patient's health to assist in assuring that he again does not have any underlying scabies. He will be given a multivitamin infusion daily. Will continue with Vistaril for the pruritus as needed and some Xanax for anxiety. Will anticipate hopefully discharging in the next 1 to 2 days. Until then, will continue to monitor the patient closely. #[id number] [facility]
[2016-08-03] MEDS ORDERED: MELATONIN 3 MG TAB ONE (19:15)
[2016-08-03] MEDS ORDERED: MAGNESIUM HYDROXIDE 30 ML UD PO ONE (19:30)
[2016-08-03] MEDS: MELATONIN 3 MG TAB PO SCH (21:15)
[2016-08-03] MEDS: ENOXAPARIN SODIUM 40 MG/0.4 ML SYG SUBCU SCH (21:15)
[2016-08-03] MEDS: SODIUM CHLORIDE 0.9% (FLUSH) 10 ML SYG IV SCH (22:00)
[2016-08-03] MEDS: TEMAZEPAM 15 MG CAP PO PRN (23:22)
[2016-08-04] MEDS: SODIUM CHL 0.9% IVPB SCH ×3 (00:02→23:50)
[2016-08-04] MEDS: VANCOMYCIN HCL IVPB SCH ×3 (00:02→23:50)
[2016-08-04] MEDS: SODIUM CHLORIDE 0.9% (FLUSH) 10 ML SYG IV PRN ×2 (00:02→06:07)
[2016-08-04] MEDS ORDERED: metroNIDAZOLE IV PREMIX 500MG 100 ML IVPB ONE ×3 (05:58→22:56)
[2016-08-04] MEDS: metroNIDAZOLE IV PREMIX 500MG 500 MG in PREMIX BAG 1 BAG IVPB SCH ×3 (06:07→22:59)
--- NOTE | 2016-08-04 07:11 | RAD ---
Procedure: XR FOOT 3 OR MORE VIEWS Exam Date: 08/04/2016 Ordering Provider: Deo Romano NP Clinical Indication: cellulitis left great toe Comparison: None FINDINGS: No fracture or dislocation. No radiographic evidence of osteomyelitis. No lytic or sclerotic lesions. 6 mm radiopaque foreign body in the plantar soft tissues. No subcutaneous gas evident. IMPRESSION: 1. 6 mm radiopaque foreign body in the plantar soft tissues. 2. No radiographic evidence of osteomyelitis in the left foot. Electronically signed by: Haraln Rodriguez MD 08/04/2016 7:10 AM CDT
[2016-08-04] MEDS: INSULIN LISPRO 100 UNITS/ML PEN SUBCU SCH ×4 (07:41→21:19)
[2016-08-04] MEDS: HYDROcodone 5MG/APAP 325MG 1 EA TAB PO PRN ×3 (07:46→18:31)
[2016-08-04] MEDS: INSULIN DETEMIR 100 UNITS/ML PEN SUBCU SCH ×2 (09:24→21:03)
[2016-08-04] MEDS ORDERED: CHLORHEXIDINE GLUCONATE 4 % 15 ML UD TOP ONE (09:27)
[2016-08-04] MEDS: CHLORHEXIDINE GLUCONATE 4 % 15 ML UD TOP SCH ×2 (09:38→21:21)
[2016-08-04] MEDS: SODIUM CHLORIDE 0.9% (FLUSH) 10 ML SYG IV SCH ×2 (09:39→21:21)
[2016-08-04] MEDS ORDERED: SODIUM CHL 0.9% 250ML (AVIVA) 250 ML IVPB ONE ×2 (11:28→23:05)
[2016-08-04] MEDS ORDERED: VANCOMYCIN HCL INJ 1,000 MG VIAL IVPB ONE ×2 (11:28→23:05)
[2016-08-04] MEDS ORDERED: THIAMINE HCL INJ 100 MG/ML VIAL ONE (16:50)
[2016-08-04] MEDS ORDERED: SODIUM CHLORIDE 0.9% 1000ML 1,000 ML ONE (16:50)
[2016-08-04] MEDS ORDERED: MULTIPLE VITAMIN 10 ML VIAL ONE (16:51)
[2016-08-04] MEDS: MULTIPLE VITAMIN INJ 10 ML, THIAMINE HCL INJ 100 MG in SODIUM CHLORIDE 0.9% 1000ML 1,00... IVS SCH (17:13)
[2016-08-04] MEDS: MELATONIN 3 MG TAB PO SCH (21:03)
[2016-08-04] MEDS: TEMAZEPAM 15 MG CAP PO PRN (21:03)
[2016-08-04] MEDS: ALPRAZolam 0.25 MG TAB PO PRN (21:03)
[2016-08-04] MEDS: ENOXAPARIN SODIUM 40 MG/0.4 ML SYG SUBCU SCH (21:03)
[2016-08-04] MEDS: IV SET AND CAP CHANGE INJ INJ SCH (22:54)
[2016-08-05] MEDS ORDERED: metroNIDAZOLE IV PREMIX 500MG 100 ML IVPB ONE (05:34)
[2016-08-05] MEDS: metroNIDAZOLE IV PREMIX 500MG 500 MG in PREMIX BAG 1 BAG IVPB SCH ×2 (05:37→14:23)
[2016-08-05] MEDS: HYDROcodone 5MG/APAP 325MG 1 EA TAB PO PRN (07:14)
[2016-08-05] MEDS: INSULIN LISPRO 100 UNITS/ML PEN SUBCU SCH ×2 (08:15→12:50)
[2016-08-05] MEDS: INSULIN DETEMIR 100 UNITS/ML PEN SUBCU SCH (08:45)
[2016-08-05] MEDS: CHLORHEXIDINE GLUCONATE 4 % 15 ML UD TOP SCH (09:10)
[2016-08-05] MEDS: SODIUM CHLORIDE 0.9% (FLUSH) 10 ML SYG IV SCH (09:10)
--- NOTE | 2016-08-05 09:33 | PN ---
SUPERVISING PHYSICIAN: Isa Arriaza MD DATE: 08/04/16 SUBJECTIVE: The patient is doing well this morning although he continues to complain that he feels like he has bugs underneath his skin. His legs are showing much improvement. He says they feel better. He has not had any nausea , vomiting or diarrhea. He remains afebrile. OBJECTIVE: VITAL SIGNS: Temperature 97.9. Pulse 77. Blood pressure 118/72. Respirations 16. O2 saturation 96% on room air. I&Os show positive balance of 1267 with 4267 in, 3000 out. Weight 66.5 kg. CHEST: Lungs clear to auscultation bilaterally. HEART: Regular rate and rhythm. ABDOMEN: Soft, nontender. Positive bowel sounds. EXTREMITIES: Multiple areas of abrasions, excoriations and sores as previously noted, in various stages of healing, although the left great toe shows now just some mild erythema and is much improved. There is no drainage. Wound on the lateral aspect of the left leg also shows improvement with some eschar noted. He did get a Permethrin treatment yesterday, but again there was no really obvious infestation from insects or any obvious signs of scabies. LABORATORY: CBC is stable with white count 7.1, hemoglobin 11.8, hematocrit 35.9, platelet count 323,000, differential within normal limits. Chemistries show normal electrolytes with potassium 4.4, BUN 22, creatinine 0.89. Glucose has been fairly well controlled, although still shows some elevation, anywhere from 108 to 320. Calcium 8.6. MICROBIOLOGY: Wound culture of the great toe shows Staphylococcus aureus which is non-MRSA. MRSA surveillance culture was negative. Aerobic blood cultures times 2 showed no growth at 3 days. RADIOLOGY: Left foot x-ray per radiology interpretation showed a 6 mm radiographic foreign body in the plantar soft tissue. There was no radiographic evidence of osteomyelitis within the left foot. ASSESSMENT: 1. Type 2 diabetes mellitus, poorly controlled, resulting in multiple diabetic ulcers to the left heel, complicated by hyperosmolar/hyperglycemic state, improving with sliding scale and diet control. 2. Cellulitis of the left great toe secondary to poor perfusion from complications of poorly controlled type 2 diabetes mellitus, improving after starting on IV antibiotics without any microbiological evidence of MRSA infection. 3. Sever pruritus secondary to his previous methamphetamine abuse and complicated by pain management with [place] without any signs of allergies or obvious infestations from bugs such as scabies. 4. History of chronic methamphetamine abuse with tactile hallucinations, such as sensations of bugs reported on the skin with picking the areas with multiple areas of excoriation and scratching, complicated by underlying poorly controlled diabetes and poor venous circulation to the lower extremities with no obvious signs of infestation from insects, improving after starting on parenteral antibiotics. 5. Hyperosmolar, nonketotic hyperglycemic state on admission, improved after beginning on insulin and control of diet along with fluids and multivitamin infusions. 6. Moderate dehydration with hyperosmolar state and chronic methamphetamine abuse, complicated by underlying type 2 diabetes, showing improvement after aggressive IV therapy. 7. History of hypertension, stable. 8. Right inguinal hernia, not incarcerated, stable. 9. Poor nutritional intake secondary to previous methamphetamine abuse resulting in less than optimal caloric intake and weight loss. 10. Chronic abuse of smokeless tobacco. PLAN: The patient is showing good improvement. We will continue with his antibiotics to include Flagyl, Levaquin and vancomycin. We will anticipate deescalating to oral therapy in the morning after reassessment with anticipating of discharging home. We will continue with diluted Hibiclens twice a day to the areas under question and again encouraged the patient to prevent himself from scratching and further infecting himself. He did get Permethrin cleansing yesterday, so that helped a little bit, but he still feels like he has some bugs. Again, it was reinforced that this is a side effect of his previous methamphetamine abuse and probably from side effect from [place] pain management. He is showing slow clinical improvement. We have Barbi, our social media marketing analyst, assisting with the patient's discharge planning and will anticipate possible discharge tomorrow. Until then, we will continue to monitor the patient closely and treat appropriately. #[id number] [facility]
[2016-08-05] MEDS ORDERED: SODIUM CHL 0.9% 250ML (AVIVA) 250 ML IVPB ONE (12:58)
[2016-08-05] MEDS ORDERED: VANCOMYCIN HCL INJ 1,000 MG VIAL IVPB ONE (12:58)
[2016-08-05] MEDS: SODIUM CHL 0.9% IVPB SCH (13:01)
[2016-08-05] MEDS: VANCOMYCIN HCL IVPB SCH (13:01)
[2016-08-05 14:28] VITALS: BP 126/75; TEMP 98.8; O2SAT 96
[2016-08-08] MEDS ORDERED: hydrOXYzine PAMOATE 25 MG CAP PO ONE (23:00)
--- NOTE | 2016-08-13 13:48 | DS ---
SUPERVISING PHYSICIAN: Gerardo Rodriguez MD DISCHARGE DIAGNOSIS: 1. Type 2 diabetes mellitus, poorly controlled, resulting in multiple diabetic ulcers to the left heel, complicated by hyperosmolar/hyperglycemic state, showing improvement after starting on sliding scale and better diet control as well as antibiotic therapy. 2. Cellulitis of the left great toe secondary to poor perfusion from complications of poorly controlled type 2 diabetes mellitus, improving after starting on IV antibiotics without any microbiological evidence of MRSA infection. 3. Sever pruritus secondary to his previous methamphetamine abuse and complicated by pain management with [place]andrews without any signs of allergies or obvious infestations from bugs such as scabies. 4. History of chronic methamphetamine abuse with tactile hallucinations, such as sensations of bugs reported on the skin with picking the areas with multiple areas of excoriation and scratching, complicated by underlying poorly controlled diabetes and poor venous circulation to the lower extremities with no obvious signs of infestation from insects, improving after starting on parenteral antibiotics and wound care. 5. Hyperosmolar, nonketotic hyperglycemic state on admission, improved after beginning on insulin and control of diet along with fluids and multivitamin infusions. 6. Moderate dehydration with hyperosmolar state and chronic methamphetamine abuse, complicated by underlying type 2 diabetes, showing improvement after aggressive IV therapy. 7. History of hypertension, stable. 8. Right inguinal hernia, not incarcerated, stable. 9. Poor nutritional intake secondary to previous methamphetamine abuse resulting in less than optimal caloric intake and weight loss. 10. Chronic abuse of smokeless tobacco. 11. Noted on radiographic studies of the left foot was a 6 mm radiopaque foreign body without any clinical signs of infection or complications. HISTORY OF PRESENT ILLNESS: Mr. Marroquin was admitted on 08/01/16. He is a 61- year-old, male patient who lives in [place], who presented to the Emergency Department today complaining that he had bug bites all over his body, especially on the bottom of his feet. He does have a significant history of being diabetic and being poorly compliant at times as well as a longstanding history of methamphetamine abuse on a chronic basis with the most recent use being within 3 to 5 days prior to admission. On admission, he notes that he has bug bites more on the bottom of his feet that cause itching and pain when he walks. Initial workup in the Emergency Department showed laboratory studies with a white count of 7.1 with hemoglobin 12.5, hematocrit 38.3, platelet count 370,000. Chemistries were significant for glucose of 474 with BUN 27, creatinine 0.95. All other electrolytes and liver function showed to be within normal limits. Urinalysis showed greater than 1,000 glucose with trace of blood , otherwise was within normal limits. He did have a toxicology screen on urine that showed positive methamphetamines, but was negative on ketones. Blood cultures were drawn in the Emergency Department and he was started on antibiotics initially to include Levaquin for multiple sores to both lower extremities and a large area on his left great toe with moderate cellulitis. He was admitted for continuation of treatment and further evaluation. He was admitted in stable condition to the Medical/Surgical floor. LABORATORY: White count remained within normal limits during admission with admission of 7.1 and discharge was 7.1. Hemoglobin and hematocrit were stable. At discharge, hemoglobin was 11.8 and hematocrit 35.9. Platelet count 320, 000. Differential never did show a left shift. Chemistries initially on admission showed normal electrolytes and at discharge his electrolytes were within normal limits. Initial glucose on admission was 474, however, after initiation of treatment, IV therapy and insulin, blood sugars finally leveled off and at time of discharge was 125. BUN initially on admission was 27, creatinine 0.95 and remained within normal limits. At discharge, creatinine was 0.89. Liver functions were within normal limits. Urinalysis greater than 1000 glucose with intact blood. Otherwise, within normal limits. Ketones negative. Toxicology screen was positive for amphetamines on urine drug screen. He had negative ketones. Vancomycin trough was 11.8. MICROBIOLOGY: MRSA surveillance culture showed no growth at 72 hours. He did grow Staphylococcus aureus from the left great toe, which was not MRSA and was resistant to everything except benzylpenicillin. RADIOLOGY: Lower extremity ultrasound, bilateral, were both negative for deep venous thrombosis. Left foot x-ray per radiology interpretation showed no radiographic of osteomyelitis in the left foot. There was mention of a 6 mm radiopaque foreign body in the plantar soft tissue. HOSPITAL COURSE: Mr. Marroquin was admitted as noted in history of present illness for concerns for cellulitis. He was started on vancomycin as well as additionally was added Levaquin and Flagyl given the fact he is diabetic and had multiple sores on both feet with the biggest concern being on the left great toe. He also complains of pruritus chronically and felt like he had bugs crawling on him. He was given a shower as well as treated with Permethrin. Clinically, he had shown improvement. The wounds on his legs had shown great improvement compared to admission and he was felt clinically well enough to be discharged secondary to improvement of his blood sugars, hyperosmolar/ hyperglycemic state after he was initiated on diabetic medications and IV fluids. PLAN: The patient was discharged on 08/05/16 and instructed to followup with [facility] as scheduled in 7 to 10 days or sooner if needed. He was to resume his home medications as previously directed. He was to continue wound care as instructed with Hibiclens washes. He was to start his antibiotics as described and take to completion. He was encouraged to stop using any drugs not prescribed to him by a medical provider, such as illicit drugs or amphetamines. He was encouraged to take his blood sugars as directed, at least 2 to 3 times a day, and follow a strict diabetic diet. He was encouraged to stop picking at his skin as he was reinforced that he did not have any bugs and this was a side effect of the amphetamines. He was told to return to the hospital should his condition worsen or should he have any other concerning symptoms. He was instructed to shower with Hibiclens as instructed twice daily, but do not get the Hibiclens around his face or his ears. At time of discharge, prescriptions included: 1. Augmentin 875 mg twice daily, #10. 2. Hibiclens topically as directed. 3. Doxycycline 100 mg twice daily, #10. 4. Melatonin for insomnia 3 mg at bedtime as needed. 5. Flagyl 500 mg 3 times daily, #15. Diet at discharge is diabetic. Activity is as tolerated. Condition at discharge was stable. #[id number] [facility]
== END 2016-08-05 15:46 | disposition home or self-care (01) | DRG 638 ==
LOC: ER 16:53 → MS 19:23
PROVIDERS: ADMIT Nurse Practitioner Family; ATTEND Nurse Practitioner Family
DX: E11.628 Type 2 diabetes mellitus with other skin complications (principal); Z68.1 Body mass index [BMI] 19.9 or less, adult; L97.429 Non-pressure chronic ulcer of left heel and midfoot with unspecified severity; L03.116 Cellulitis of left lower limb; E46 Unspecified protein-calorie malnutrition; R44.2 Other hallucinations; L03.032 Cellulitis of left toe; E11.00 Type 2 diabetes mellitus with hyperosmolarity without nonketotic hyperglycemic-hyperosmolar coma (NKHHC); E11.621 Type 2 diabetes mellitus with foot ulcer; L97.529 Non-pressure chronic ulcer of other part of left foot with unspecified severity; E11.65 Type 2 diabetes mellitus with hyperglycemia; E86.0 Dehydration; K40.90 Unilateral inguinal hernia, without obstruction or gangrene, not specified as recurrent; I10 Essential (primary) hypertension; F15.10 Other stimulant abuse, uncomplicated; F17.290 Nicotine dependence, other tobacco product, uncomplicated; R45.1 Restlessness and agitation; L29.9 Pruritus, unspecified; B95.61 Methicillin susceptible Staphylococcus aureus infection as the cause of diseases classified elsewhere; S80.812A Abrasion, left lower leg, initial encounter; W50.4XXA Accidental scratch by another person, initial encounter; T38.3X6A Underdosing of insulin and oral hypoglycemic [antidiabetic] drugs, initial encounter; Z91.11 Patient's noncompliance with dietary regimen; Z91.14 Patient's other noncompliance with medication regimen; Z91.128 Patient's intentional underdosing of medication regimen for other reason; Z79.4 Long term (current) use of insulin; Y92.9 Unspecified place or not applicable; Y93.9 Activity, unspecified; Y99.9 Unspecified external cause status

== ENCOUNTER 2016-09-09 12:01 | Emergency (ER) | payer MEDICAID, OTHER ==
[2016-09-09 12:36] VITALS: TEMP 97.5
--- NOTE | 2016-09-09 12:38 | ED.PDOC ---
History of Present Illness - General Chief Complaint: Back Pain or Injury Stated Complaint: back pain Time Seen by Provider: 09/09/16 12:31 Additional Information: PT C/O LBP. NO HX OF TRAUMA. BEN, SHARP, NON RADIATING. - History of Present Illness Timing/Duration: other - 2 DAYS Improving Factors: nothing Worsening Factors: movement Associated Symptoms: other - FEELS LIKE "BUGS" ARE CRAWLING ON HIS BACK AND EYES Allergies/Adverse Reactions: Allergies NO KNOWN ALLERGY Allergy (Verified 09/09/16 12:18) Home Medications: Ambulatory Orders Insulin Detemir [Levemir] 30 unit SUBCU BID 07/11/16 Amoxicillin & Pot Clavulanate [Augmentin Tab] 875 mg PO BID #10 tab 08/05/16 Chlorhexidine Gluc 4% 15Ml [Hibiclens 15ml Unit Dose] 15 ml TOP BID #1 bottle Doxycycline Hyclate [Vibramycin] 100 mg PO BID #10 cap 08/05/16 Insulin Detemir [Levemir] 100 unit SUBCU BID #1 pen 08/05/16 Melatonin 3 mg PO BEDTIME 08/05/16 metroNIDAZOLE [Flagyl] 500 mg PO TID #15 tab 08/05/16 Cyclobenzaprine HCl [Flexeril] 10 mg PO TID PRN #15 tab 09/09/16 Indomethacin 50 mg PO TID PRN #14 cap 09/09/16 Review of Systems - Review of Systems Constitutional: Denies: chills, fever EENTM: States: other - FEELS LIKE BUGS ARE IN HIS EYES. Denies: eye pain, blurred vision, ear pain Respiratory: Denies: cough, short of breath Cardiology: States: no symptoms reported Gastrointestinal/Abdominal: States: no symptoms reported Genitourinary: States: frequency. Denies: dysuria, hematuria Musculoskeletal: States: back pain. Denies: joint pain, joint swelling Skin: States: other - FEELS LIKE BUGS ARE ON HIS BACK Endocrine: States: no symptoms reported Hematologic/Lymphatic: States: no symptoms reported Past Medical History (General) - Patient Medical History Hx Seizures: No Hx Stroke: No Hx Asthma: No Hx of COPD: No Hx Cardiac Disorders: No Hx Congestive Heart Failure: No Hx Pacemaker: No Hx Hypertension: No Hx Diabetes: Yes Hx Gastroesophageal Reflux: No Hx Renal Disease: No Hx Cancer: No Hx MRSA: No Surgical History: appendectomy - Vaccination History Hx Tetanus, Diphtheria Vaccination: Yes Hx Influenza Vaccination: Yes Hx Pneumococcal Vaccination: Yes - Social History Hx Tobacco Use: No Hx Chewing Tobacco Use: Yes Hx Alcohol Use: No Hx Substance Use: No Hx Substance Use Treatment: No Hx Depression: No Hx Physical Abuse: No Hx Emotional Abuse: No Hx Suspected Abuse: No - Activities of Daily Living Hospice Agency (if applicable):: None - Female History Patient is a Female of Child Bearing Age (10 -59 yrs old): No Patient : No Family Medical History - Family History Mother Family History: Unknown Living Status: Hx Family Asthma: No Hx Family Congestive Heart Failure: No Hx Family Hypertension: No Hx Family Stroke: No Hx Cardiac Disease: No Hx Family Diabetes: Yes - mother Hx Family Cancer: No Hx Family;Other: patient uncoperative Physical Exam - Physical Exam General Appearance: Alert, Comfortable Eye Exam: bilateral normal Ears, Nose, Throat: hearing grossly normal, normal ENT inspection Neck: non-tender, full range of motion, supple Respiratory: lungs clear, normal breath sounds, no respiratory distress Cardiovascular/Chest: regular rate, rhythm, no murmur Gastrointestinal/Abdominal: normal bowel sounds, non tender, soft Extremity: normal range of motion, non-tender Neurologic: no motor/sensory deficits, alert, normal mood/affect DTR: 2+: Achilles, left, Achilles, right, Patellar, left, Patellar, right Skin Exam: normal color, warm/dry, other - NO EVIDENCE OF INSECTS Lymphatic: no adenopathy Progress - Progress Progress: 09/09/16 13:44 SLEEPING, PAIN MUCH BETTER. CANNOT PROVIDE URINE Departure - Departure Clinical Impression: Musculoskeletal pain Time of Disposition: 13:47 Disposition: Discharge to Home or Self Care Condition: Excellent Departure Forms: ED Discharge - Pt. Copy, Patient Portal Self Enrollment Instructions: DI for Low Back Pain Referrals: Eloise Durand NP [Active Staff] - 1-2 Weeks Prescriptions: Cyclobenzaprine HCl [Flexeril] 10 mg PO TID PRN #15 tab PRN Reason: Pain Indomethacin 50 mg PO TID PRN #14 cap PRN Reason: Pain Home Medications: Ambulatory Orders Insulin Detemir [Levemir] 30 unit SUBCU BID 07/11/16 Amoxicillin & Pot Clavulanate [Augmentin Tab] 875 mg PO BID #10 tab 08/05/16 Chlorhexidine Gluc 4% 15Ml [Hibiclens 15ml Unit Dose] 15 ml TOP BID #1 bottle Doxycycline Hyclate [Vibramycin] 100 mg PO BID #10 cap 08/05/16 Insulin Detemir [Levemir] 100 unit SUBCU BID #1 pen 08/05/16 Melatonin 3 mg PO BEDTIME 08/05/16 metroNIDAZOLE [Flagyl] 500 mg PO TID #15 tab 08/05/16 Cyclobenzaprine HCl [Flexeril] 10 mg PO TID PRN #15 tab 09/09/16 Indomethacin 50 mg PO TID PRN #14 cap 09/09/16
[2016-09-09] MEDS ORDERED: KETOROLAC TROMETHAMINE INJ 30 MG/ML VIAL IM ONE (12:40)
[2016-09-09] MEDS ORDERED: ORPHENADRINE CITRATE 30 MG/ML AMP IM ONE (12:40)
[2016-09-09 14:27] VITALS: BP 106/81; O2SAT 98
== END 2016-09-09 14:15 | disposition home or self-care (01) ==
LOC: ER 12:01
DX: M79.1 Myalgia (principal); E11.9 Type 2 diabetes mellitus without complications; Z87.891 Personal history of nicotine dependence; Z79.4 Long term (current) use of insulin; Z79.899 Other long term (current) drug therapy
CPT/HCPCS: J1885; J2360